=== PATIENT | female | born 1935 | race Caucasian/White ===

== ENCOUNTER → 2017-01-24 | Outpatient (CLI) | payer OTHER ==
[~2017-01-24] MED LIST: ARM1 PO; ATOR10TA88 PO; CLTP PO; HYDR0.5T PO; MULT-506 PO; PANT40TA PO
--- NOTE | 2017-01-24 13:52 | DIAGNOSTIC IMAGING REPORT ---
SINGLE VIEW PELVIS; 2 VIEWS RIGHT HIP; 2 VIEWS LEFT HIP CLINICAL HISTORY: Fall with hip pain. FINDINGS: An AP view of the pelvis with AP and frog-leg views of the right hip as well as AP and frog-leg views of the left hip are obtained. No prior studies are available for comparison at the time of dictation. The skeletal structures are osteopenic. There are right superior and inferior pubic ring fractures. The inferior pubic ring fracture is minimally distracted. The remainder of the bony pelvis appears intact, as do the proximal femora. Enthesophytes arise in the greater trochanter of the left proximal femur. Mild to moderate arthritic change is present in both hips, right side greater than left. Mild sclerosis is noted in the pubic symphysis. The overlying soft tissues are within normal limits. A nonobstructed bowel gas pattern is noted in the pelvis. Small pelvic phleboliths are identified. IMPRESSION: 1. Right pubic ring fractures as above. 2. No additional fracture is seen in the hips or bony pelvis. 3. Osteopenia and degenerative change as above. Electronically signed by: Jesse Vergara M.D. 01/24/2017 1:50 PM Dictated Date/Time: 01/24/2017 1:46 PM
== END | disposition home or self-care (01) ==
LOC: C.RADBC 11:36
PROVIDERS: ATTEND Internal Medicine
DX: S32.810A Multiple fractures of pelvis with stable disruption of pelvic ring, initial encounter for closed fracture (principal); X58.XXXA Exposure to other specified factors, initial encounter

== ENCOUNTER → 2018-01-07 | Outpatient (CLI) | payer OTHER ==
[~2018-01-07] MED LIST changes: +ATOR10TA82 PO; -ATOR10TA88 PO; +OPTIRAY 320 IV PRN
--- NOTE | 2018-01-07 15:09 | DIAGNOSTIC IMAGING REPORT ---
LUMBAR SPINE WITH CLINICAL HISTORY: M54.16 Lumbar radiculopathyscheduled at [facility] - @ 2:20pm, n pain TECHNIQUE: Transaxial acquisition. Multiple axial reformatted images COMPARISON STUDY: None FINDINGS: Mild compression deformities L4 and L5. Estimated loss of vertebral body height is 20%. 50% compression deformities of T12 and L1. Slight retropulsion of the posterior margins of the vertebral bodies estimated no more than 4 mm. T12-L1 mild posterior displacement of the posterior margin of T12 x 4 mm. Mild impact anterior thecal sac. No significant compromise of the neural foramina or spinal canal. L1-L2: Mild posterior displacement of the inferior endplate of L1 x 4 mm. Mild there is a neuroforamina bilaterally. No significant impact upon the spinal canal. L2-L3 no disc herniation or spinal stenosis. L3-L4 moderate degenerative change posterior elements. No significant compromise of the spinal canal or neural foramina. L4-L5: Mild broad-based disc bulge. Minimal impact anterior thecal sac. Neuroforamina are patent bilaterally. L5-S1: Mild broad-based disc bulge. Minimal impact anterior thecal sac. Degenerative change posterior elements. No foramina are patent bilaterally. IMPRESSION: 1. 50% compression deformities of T12 and L1. 2. Slight retropulsion of posterior margins of the vertebral bodies at both levels of no more than 4 mm. 3. 20% compression deformities of L4 and L5 4. Considerable degenerative change of the posterior elements. 5. No major compromise of the spinal canal or neural foramina. The above report was generated using voice recognition software. It may contain grammatical, syntax or spelling errors. Electronically signed by: Pee Carbajal M.D. 01/07/2018 3:08 PM Dictated Date/Time: 01/07/2018 3:02 PM
== END | disposition home or self-care (01) ==
LOC: C.CTS 13:31
PROVIDERS: ATTEND Internal Medicine Geriatric Medicine
DX: M54.16 Radiculopathy, lumbar region (principal)

== ENCOUNTER → 2018-02-02 | Outpatient (CLI) | payer OTHER ==
[~2018-02-02] MED LIST changes: -ARM1 PO; -OPTIRAY 320 IV PRN; +TRAM-10 PO
[2018-02-02 13:15] LABS: BASO % 0.5 %; BASO ABS # 0.03 K/uL (0-0.2); EOS % 2.3 %; EOS ABS # 0.15 K/uL (0-0.5); HEMATOCRIT 37.8 % (37-47); HEMOGLOBIN 12.3 g/dL (12.0-16.0); IG# 0.02 K/uL (0.00-0.02); LYMPH % 19.7 %; LYMPH ABS # 1.28 K/uL (1.2-3.4); MEAN CELL VOLUME 91.5 fL (80-100); MEAN CORPUSCULAR HEMOGLOBIN 29.8 pg (25-34); MEAN CORPUSCULAR HGB CONC 32.5 g/dl (32-36); MEAN PLATELET VOLUME 10.5 fL (7.4-10.4); MONO % 14.5 %; MONO ABS # 0.94 K/uL (0.11-0.59); NEUT % 62.7 %; NEUT ABS # 4.07 K/uL (1.4-6.5); PLATELET COUNT 245 K/uL (130-400); RED CELL DISTRIBUTION WIDTH CV 14.8 % (11.5-14.5); RED CELL DISTRIBUTION WIDTH SD 49.8 fL (36.4-46.3); WHITE BLOOD COUNT 6.49 K/uL (4.8-10.8)
== END | disposition home or self-care (01) ==
LOC: C.LAB1850 12:13
PROVIDERS: ATTEND Anesthesiology
DX: Z01.812 Encounter for preprocedural laboratory examination (principal); M54.16 Radiculopathy, lumbar region; M06.9 Rheumatoid arthritis, unspecified

== ENCOUNTER 2023-10-04 20:18 | Inpatient (IN) ==
[2023-10-04] MEDS ORDERED: ACETAMINOPHEN 500 MG TAB PO STA (20:39)
--- NOTE | 2023-10-04 23:10 | Emergency Department Note ---
History of Present Illness General Chief complaint: Hip Pain Stated complaint: FALL RT HIP PAIN Time Seen by Provider: 10/04/23 22:55 History of Present Illness 88-year-old female who presents to the emergency department accompanied by son and [id number] for evaluation status post fall with right hip pain. Patient states she got up from the table to get a drink and lost her balance causing her to fall. She reports landing on her right side/buttocks. She called for help when her son came and picked her up off the ground. Incident occurred around 3 PM. She denies hitting her head or loss of consciousness. She is unable to ambulate secondary to the pain and states that she cannot lift her right leg up. She denies numbness/tingling in the leg. She reports a history of a pelvic fracture about 10 years ago and states it feels similar. She denies feeling dizzy/lightheaded prior to her fall. Her fall was unwitnessed. She is not on any blood thinners. She denies headaches, visual changes, chest pain, shortness of breath, abdominal pain. No recent illnesses, fever/chills, nausea/vomiting, cold-like symptoms, urinary symptoms. Family states that patient is otherwise at her baseline. Home Medications Medication Instructions Recorded Confirmed Type calcium carbonate 600 mg-vitamin 1 tab PO BID 08/03/18 07/22/23 History D3 20 mcg (800 unit) chewable tablet (Caltrate 600 plus D) hydroxychloroquine 200 mg tablet 200 mg PO HS 08/03/18 07/22/23 History (Plaquenil) multivitamin 1 tab PO QAM 08/03/18 07/22/23 History duloxetine 20 mg capsule,delayed 20 mg PO QAM #90 caps 04/07/23 07/22/23 Rx release Allergies Allergy/AdvReac Type Severity Reaction Status Date / Time No Known Allergies Allergy Verified 07/22/23 13:38 Past Med/Surg History Medical History Thoracic kyphosis Anemia PVD (peripheral vascular disease) Carotid artery bruit Spinal stenosis of lumbar region Anxiety Cardiac murmur since childhood History of upper gastrointestinal bleeding 2013 due to Peptic Ulcer Severe anemia Rheumatoid arthritis Osteoporosis Tuberculosis 1963 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 09/10/21. 2mg versed. 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 History of back surgery lumbar H/O mastectomy Left Family History Other Heart disease Liver disease Denies family history of Ovarian cancer Prostate cancer Myocardial infarction Breast cancer Colorectal cancer Social History Smoking Status: Never smoker Second Hand Exposure: No; Do You Dip or Chew Tobacco: No; Hx Alcohol Use: No Hx Substance Use: No Preferred Language: Hebrew Communication Ability: Effective Visual Impairment: No Limitations Hearing Ability: Normal Health Support Specialist Required: No Beliefs That Will Affect Care: None marital status: / marital status details: 05/2019 Current Living Situation: Family Current Living Situation Comment: and son current occupational status: retired 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 Feels Safe at Home: Yes Childhood Exposure to Second-Hand Smoke: No Diet: regular caffeine: Yes during the past year weight has: remained stable Dental Care, Regularly: No Physical Activity Frequency: Does not Exercise Seatbelt Use: always Sunscreen Use: Yes Assistive Devices: Denture - Upper and Denture - Lower Physical Exam Vital Signs Vital Signs - 24 hr 10/04/23 20:35 10/05/23 00:18 Temperature 37 C 36.7 C Temperature Source Temporal Artery Scan Oral Pulse Rate 83 Pulse Rate [Finger] 65 Pulse Rhythm [Finger] Regular Pulse Strength [Finger] Normal Respiratory Rate 20 17 Respiratory Effort / Characteristics Non-Labored Spontaneous Non-Labored Spontaneous Respiratory Depth Normal Normal Respiratory Pattern Regular Blood Pressure 155/80 H Blood Pressure [Right Arm] 157/96 H Blood Pressure Mean 105 Blood Pressure Mean [Right Arm] 116 Blood Pressure Position [Right Arm] Semi-fowlers Pulse Oximetry 97 99 Oxygen Delivery Method Room Air Room Air Sepsis Recent Fever Within 48 Hours No Sepsis New/Unexplained Change in Mental Status N/A Sepsis Action Taken by Nursing No Action Required Constitutional: alert and oriented x3. no acute distress. Nontoxic HEENT: normocephalic, atraumatic. No facial trauma. No scalp tenderness or hematoma normal conjunctiva.PERRLA. EOM's grossly intact. TMs pearly moreira without effusion. Pharynx pink without exudate. Tonsils nonenlarged. Mucus membranes moist Neck: neck is supple, nontender. Midline C-spine nontender Respiratory: lungs are clear to auscultation without wheezes, rhonchi, or rales bilaterally. equal chest rise. normal respiratory effort, no accessory muscle use. Cardiovascular: normal heart sounds without murmur. regular rate and rhythm. GI: abdomen is soft, nontender. No palpable masses. No rebound tenderness or guarding. MSK: Right gluteal tenderness and tenderness over the right lateral hip. No obvious bony deformity or step-off. No extremity shortening or rotation. Pain elicited with hip flexion and external rotation. Remaining extremities unremarkable. No midline thoracic or lumbar spinal tenderness Peripheral vascular: Lower extremities warm and well perfused with palpable pedal pulses. Brisk capillary refill of all digits. Sensation grossly intact Neuro: without focal neuro deficits. GCS 15. Answers questions appropriately, follows commands. CNII-XII intact. Speech clear, tongue midline, without facial droop. Strength equal throughout all for extremities. Psych:appropriate mood and affect. Course Administered Medications Discontinued Medications Acetaminophen (Acetaminophen 500 Mg Tab) 500 mg PO NOW STA Stop: 10/04/23 20:40 Last Admin: 10/04/23 21:43 Dose: 500 mg Documented By: MERLY Medical Decision Making Differential Diagnosis Fracture, subluxation, dislocation, contusion, ligamentous injury, neurovascular, compartment syndrome, rhabdomyolysis, as well as other pathologies. Laboratory Data Attestation: I reviewed the patient's lab results. 10/05/23 00:30 10/04/23 23:23 Lab Results 10/04/23 10/04/23 10/05/23 Range/Units 23:23 23:27 00:30 WBC Cancelled 8.28 RBC Cancelled 4.00 L Hgb Cancelled 11.4 L POC Hgb 12.6 (12.0-16.0) g/dl Hct Cancelled 35.7 L POC Hct 37 (37-47) % MCV Cancelled 89.3 MCH Cancelled 28.5 MCHC Cancelled 31.9 L RDW Std Deviation Cancelled 46.6 H RDW Coeff of Mey Cancelled 14.3 Plt Count Cancelled 184 MPV Cancelled 11.1 Immature Gran % (Auto) Cancelled 0.6 Neut % (Auto) Cancelled 80.6 Lymph % (Auto) Cancelled 7.9 Reynolds % (Auto) Cancelled 10.3 Eos % (Auto) Cancelled 0.2 Baso % (Auto) Cancelled 0.4 Neut # (Auto) Cancelled 6.68 H Lymph # (Auto) Cancelled 0.65 L Reynolds # (Auto) Cancelled 0.85 H Eos # (Auto) Cancelled 0.02 Baso # (Auto) Cancelled 0.03 Immature Gran # (Auto) Cancelled 0.05 Absolute Nucleated RBC Cancelled Nucleated RBC % (auto) Cancelled Neutrophils % (Manual) Cancelled Band Neutrophils % Cancelled Lymphocytes % (Manual) Cancelled Prolymphocyte % Cancelled Reactive Lymphs % (Man) Cancelled Monocytes % (Manual) Cancelled Eosinophils % (Manual) Cancelled Basophils % (Manual) Cancelled Metamyelocytes % (Man) Cancelled Myelocytes % (Man) Cancelled Promyelocytes % (Man) Cancelled Blast Cells % (Manual) Cancelled Plasma Cell % (Manual) Cancelled Other Cells % Cancelled Nucleated RBC % Cancelled Neutrophils # (Manual) Cancelled Band Neutrophils # Cancelled Total Absolute Neuts Cancelled Lymphocytes # (Manual) Cancelled Prolymphocyte # Cancelled Reactive Lymphs # Cancelled Total Abs Lymphocytes Cancelled Monocytes # (Manual) Cancelled Eosinophils # (Manual) Cancelled Basophils # (Manual) Cancelled Metamyelocytes # (Man) Cancelled Myelocytes # (Manual) Cancelled Promyelocytes # (Man) Cancelled Blast Cells # (Man) Cancelled Plasma Cell # (Manual) Cancelled Other Cells # Cancelled Nucleated RBCs # (Man) Cancelled Hypersegmented Neuts Cancelled Hyposegmented Neuts Cancelled Hypogranular Neuts Cancelled Large Granular Lymphs Cancelled # Lrg Granular Lymphs Cancelled Hairy Cells Cancelled Smudge Cells Cancelled Toxic Granulation Cancelled Toxic Vacuolation Cancelled Dohle Bodies Cancelled Kamini Rods Cancelled Platelet Estimate Cancelled Hypogranular Platelets Cancelled Giant Platelets Cancelled Platelet Satelliting Cancelled RBC Morphology Cancelled Polychromasia Cancelled Hypochromasia Cancelled Poikilocytosis Cancelled Basophilic Stippling Cancelled Anisocytosis Cancelled Microcytosis Cancelled Macrocytosis Cancelled Spherocytes Cancelled Pappenheimer Bodies Cancelled Sickle Cells Cancelled Target Cells Cancelled Tear Drop Cells Cancelled Ovalocytes Cancelled Stomatocytes Cancelled Burger-[place] Bodies Cancelled Echinocytes Cancelled Acanthocytes (Spur) Cancelled Rouleaux Cancelled RBC Agglutinates Cancelled Schistocytes Cancelled Sezary Cell Cancelled POC Sodium 138 (135-144) mmol/L Sodium 137 (136-145) mmol/L POC Potassium 4.4 (3.3-5.0) mmol/L Potassium 4.1 (3.5-5.1) mmol/L POC Chloride 103 (101-112) mmol/L Chloride 103 (98-107) mmol/L Carbon Dioxide 26 (21-32) mmol/L POC Total CO2 29 (24-31) mmol/L Anion Gap 8 (3-11) POC Anion Gap 11.0 L (16-25) mmol/L POC BUN 31 H (7-18) mg/dl BUN 24 H (6-23) mg/dl Creatinine 1.04 (0.6-1.2) mg/dl POC Creatinine 1.1 (0.6-1.3) mg/dl Est Cr Clr Drug Dosing Not Reportable Est GFR ( Amer) 55.6 ml/min Est GFR (Non-Af Amer) 47.9 ml/min BUN/Creatinine Ratio 23.1 H (10-20) Glucose 110 H (70-99(Fasting)) mg/dl POC Glucose (other) 113 H (70-99) mg/dl Calcium 9.9 (8.6-10.3) mg/dl POC Ioniz Calcium Rebeka 1.15 (1.12-1.32) mmol/l Total Bilirubin 0.7 (0.2-1.0) mg/dl AST 35 (13-39) U/L ALT 25 (7-52) U/L Alkaline Phosphatase 73 (34-104) U/L Troponin I High Sens 19.1 H (0-14) pg/ml Total Protein 7.6 (6.0-8.3) gm/dl Albumin 4.5 (3.4-5.0) gm/dl Globulin 3.1 (2.5-4.0) gm/dl Albumin/Globulin Ratio 1.5 (0.9-2) Blood Parasites ID Cancelled Imaging Data Radiologist's Impression: Cervical Spine CT 10/04/23 23:04 Exam(s): CT C SPINE EXAM: CT Cervical Spine Without Intravenous Contrast CLINICAL HISTORY: Reason for exam: fall. TECHNIQUE: Axial computed tomography images of the cervical spine without intravenous contrast. CTDI is 14.01 mGy and DLP is 390.4 mGy-cm. Automated exposure control was utilized for the study. A dose lowering technique was utilized adhering to the principles of ALARA. COMPARISON: No relevant prior studies available. FINDINGS: The vertebral body heights are maintained. The craniocervical junction is intact. The atlanto-dens interval is maintained. The dens is intact. There is no spondylolisthesis. Multilevel cervical spondylosis and degenerative disc disease. Straightening of the cervical lordosis. The unenhanced neck soft tissues are grossly unremarkable. LEFT apical pleural-parenchymal scarring/thickening with mild complications. IMPRESSION: No acute fracture or subluxation of the cervical spine. Electronically signed by: Young Munoz MD 10/05/23 00:[address] 10/04/23 23:04 Exam(s): CT HEAD Without Contrast EXAM: CT Head Without Intravenous Contrast CLINICAL HISTORY: Reason for exam: fall. TECHNIQUE: Axial computed tomography images of the head/brain without intravenous contrast. CTDI is 26.96 mGy and DLP is 536.21 mGy-cm. Automated exposure control was utilized for the study. A dose lowering technique was utilized adhering to the principles of ALARA. COMPARISON: No relevant prior studies available. FINDINGS: No acute intracranial hemorrhage. No midline shift or mass effect. The territorial moreira-white matter differentiation is maintained throughout. Age-related cerebral volume loss. Periventricular and subcortical white matter hypoattenuation, consistent with chronic microangiopathy. The visualized orbits appear grossly unremarkable. The calvarium is intact. The visualized paranasal sinuses and mastoid air cells are grossly clear. IMPRESSION: No acute intracranial hemorrhage, midline shift, or mass effect. Electronically signed by: Young Munoz MD 10/05/23 00:[address] 10/04/23 23:04 Exam(s): CT RIGHT HIP Without Contrast EXAM: CT Right Lower Extremity Without Intravenous Contrast, Hip CLINICAL HISTORY: Reason for exam: fall R hip pain. TECHNIQUE: Axial computed tomography images of the right hip without intravenous contrast. CTDI is 14.01 mGy and DLP is 390.4 mGy-cm. Automated exposure control was utilized for the study. A dose lowering technique was utilized adhering to the principles of ALARA. COMPARISON: No relevant prior studies available. FINDINGS: Acute fracture of the RIGHT superior pubic ramus, parasymphyseal region. [id number] appearing fracture of the RIGHT inferior pubic ramus. Nondisplaced fracture of the LEFT superior pubic ramus. No femoral neck or intertrochanteric hip fracture. Osseous demineralization. Refer to the concomitant pelvic CT scan. IMPRESSION: Acute fracture of the RIGHT superior pubic ramus, parasymphyseal region. [id number]-[id number] appearing fracture of the RIGHT inferior pubic ramus. Nondisplaced fracture of the LEFT superior pubic ramus. Electronically signed by: Young Munoz MD 10/05/23 01:[address] 10/04/23 23:04 Exam(s): CT PELVIS Without Contrast EXAM: CT Pelvis Without Intravenous Contrast CLINICAL HISTORY: Reason for exam: fall, R buttock pain. TECHNIQUE: Axial computed tomography images of the pelvis without intravenous contrast. CTDI is 26.96 mGy and DLP is 536.21 mGy-cm. Automated exposure control was utilized for the study. A dose lowering technique was utilized adhering to the principles of ALARA. COMPARISON: No relevant prior studies available. FINDINGS: No femoral neck or intertrochanteric hip fracture. Acute fracture of the RIGHT superior pubic ramus, parasymphyseal region. Gxqod-qh-iynbpew appearing fracture of the RIGHT inferior pubic ramus. Nondisplaced fracture of the LEFT superior pubic ramus. No fracture of the sacral ala. Degenerative changes of the bilateral hip joints, pubic symphysis, and sacroiliac joints. Severe osseous demineralization. Lumbar spondylosis and disc space narrowing. Intrapelvic contents are within normal limits for the patient's age. Intact sacrum. IMPRESSION: Acute fracture of the RIGHT superior pubic ramus, parasymphyseal region. Yzyyr-lh-yboxnic appearing fracture of the RIGHT inferior pubic ramus. Nondisplaced fracture of the LEFT superior pubic ramus. Electronically signed by: Young Munoz MD 10/05/23 01:21 AM MDM Narrative 88-year-old female presents to the emergency department company by son and [id number] for evaluation of her right hip/pelvic pain status post mechanical fall. Review of pertinent visits and past medical history performed. Vital signs in ED stable, afebrile. Patient was seen and evaluated as above. X-ray of the right hip/pelvis were obtained. These were personally reviewed and per my interpretation demonstrate right superior pubic ramus fracture. Head/neck CT was also obtained given mechanism of injury and unwitnessed fall and were negative for acute pathology. No evidence for intracranial abnormality. No cervical neck fracture or subluxation. Given x-ray findings, CT of the pelvis and hip were obtained for further evaluation. This demonstrated acute fracture of the right superior pubic ramus and then parasymphyseal region as well as a nondisplaced fracture of the left superior pubic ramus. There is an acute on chronic appearing fracture in the right inferior pubic ramus. On exam, patient is well-appearing in no acute distress. She is neurologically intact without focal deficits. GCS 15. She is mildly tender in the right gluteal region as well as lateral hip. Right lower extremity range of motion is limited secondary to pain. Neurovascularly intact. The remaining physical exam was otherwise unremarkable. She declined need for pain medication while in the ED. Patient was reassessed on multiple occasions throughout ED stay and remained stable with no new concerns. They were updated on all exam findings and test results. She has sustained an acute pelvic fracture from her fall. I did recommend admission to the hospital for further management and orthopedic evaluation for her injury. They were agreeable to this. Basic labs were obtained for admission and nonactionable. Case was discussed with hospitalist, Dr. Rosario, who graciously accepted patient to his service for further treatment. Patient was admitted in good condition. Case was discussed with ED attending, Dr. Hughes, who agreed with work-up and treatment plan Impression & Plan Closed pelvic fracture, Ambulatory dysfunction, Fall from slip, trip, or stumble Discharge Plan Visit Data Chief Complaint: Hip Pain Stated Complaint: FALL RT HIP PAIN ED Provider: Quan Hughes ED Midlevel Provider: Stephanie Guzman Discharge Problem: Closed pelvic fracture, Ambulatory dysfunction, Fall from slip, trip, or stumble Patient Disposition: Admitted As Inpatient Forms Stand Alone Forms: My [facility] Prescriptions Prescriptions: No Action multivitamin tablet 1 tab PO QAM hydroxychloroquine [Plaquenil] 200 mg tablet 200 mg PO HS calcium carbonate-vitamin D3 [Caltrate 600 plus D] 600 mg (1,500 mg)-800 unit tablet,chewable 1 tab PO BID duloxetine 20 mg capsule,delayed release(DR/EC) 20 mg PO QAM Qty: 90 3RF Referrals Referrals: Margaret Faye CRNP [Primary Care Provider] -
[2023-10-04 23:40] LABS: iSTAT Creatinine 1.1 mg/dl (0.6-1.3); iSTAT Hemoglobin 12.6 g/dl (12.0-16.0); iSTAT Ionized Calcium 1.15 mmol/l (1.12-1.32); iSTAT Potassium 4.4 mmol/L (3.3-5.0)
[2023-10-05 00:07] LABS: Alanine Aminotransferase 25 U/L (7-52); Albumin Globulin Ratio 1.5 (0.9-2); Albumin Level 4.5 gm/dl (3.4-5.0); Alkaline Phosphatase 73 U/L (34-104); Anion Gap 8 (3-11); Aspartate Aminotransferase 35 U/L (13-39); BUN Creatinine Ratio 23.1 (10-20); Bilirubin,Total 0.7 mg/dl (0.2-1.0); Blood Urea Nitrogen 24 mg/dl (6-23); Calcium 9.9 mg/dl (8.6-10.3); Carbon Dioxide 26 mmol/L (21-32); Chloride 103 mmol/L (98-107); Est GFR (African American) 55.6 ml/min; Est GFR (Non-African American) 47.9 ml/min; Globulin 3.1 gm/dl (2.5-4.0); Glucose 110 mg/dl (70-99(Fasting)); Potassium 4.1 mmol/L (3.5-5.1); Sodium 137 mmol/L (136-145); Total Protein 7.6 gm/dl (6.0-8.3)
[2023-10-05 00:16] LABS: Troponin I High Sensitivity 19.1 pg/ml (0-14)
--- NOTE | 2023-10-05 00:35 | CT Scan Report ---
Exam(s): CT HEAD Without Contrast EXAM: CT Head Without Intravenous Contrast CLINICAL HISTORY: Reason for exam: fall. TECHNIQUE: Axial computed tomography images of the head/brain without intravenous contrast. CTDI is 26.96 mGy and DLP is 536.21 mGy-cm. Automated exposure control was utilized for the study. A dose lowering technique was utilized adhering to the principles of ALARA. COMPARISON: No relevant prior studies available. FINDINGS: No acute intracranial hemorrhage. No midline shift or mass effect. The territorial moreira-white matter differentiation is maintained throughout. Age-related cerebral volume loss. Periventricular and subcortical white matter hypoattenuation, consistent with chronic microangiopathy. The visualized orbits appear grossly unremarkable. The calvarium is intact. The visualized paranasal sinuses and mastoid air cells are grossly clear. IMPRESSION: No acute intracranial hemorrhage, midline shift, or mass effect. Electronically signed by: Young Munoz MD 10/05/23 00:34 AM
--- NOTE | 2023-10-05 00:36 | CT Scan Report ---
Exam(s): CT C SPINE EXAM: CT Cervical Spine Without Intravenous Contrast CLINICAL HISTORY: Reason for exam: fall. TECHNIQUE: Axial computed tomography images of the cervical spine without intravenous contrast. CTDI is 14.01 mGy and DLP is 390.4 mGy-cm. Automated exposure control was utilized for the study. A dose lowering technique was utilized adhering to the principles of ALARA. COMPARISON: No relevant prior studies available. FINDINGS: The vertebral body heights are maintained. The craniocervical junction is intact. The atlanto-dens interval is maintained. The dens is intact. There is no spondylolisthesis. Multilevel cervical spondylosis and degenerative disc disease. Straightening of the cervical lordosis. The unenhanced neck soft tissues are grossly unremarkable. LEFT apical pleural-parenchymal scarring/thickening with mild complications. IMPRESSION: No acute fracture or subluxation of the cervical spine. Electronically signed by: Young Munoz MD 10/05/23 00:35 AM
[2023-10-05 00:45] LABS: Basophils # (auto) 0.03 K/uL (0.00-0.20); Basophils % (auto) 0.4 %; Eosinophils # (auto) 0.02 K/uL (0.00-0.50); Eosinophils % (auto) 0.2 %; Hematocrit (blood only) 35.7 % (37.0-47.0); Hemoglobin 11.4 g/dl (12.0-16.0); Immature Granulocytes # (auto) 0.05 K/uL (0.01-0.20); Immature Granulocytes % (auto) 0.6 %; Lymphocytes # (auto) 0.65 K/uL (1.20-3.40); Lymphocytes % (auto) 7.9 %; Mean Corpuscular Hemoglobin 28.5 pg (25.0-34.0); Mean Corpuscular Hgb Conc 31.9 g/dL (32.0-36.0); Mean Corpuscular Volume 89.3 fL (80.0-100.0); Mean Platelet Volume 11.1 fL (9.4-12.4); Monocytes # (auto) 0.85 K/uL (0.11-0.59); Monocytes % (auto) 10.3 %; Neutrophils # (auto) 6.68 K/uL (1.40-6.50); Neutrophils % (auto) 80.6 %; Platelet Count 184 K/uL (130-400); RDW Coefficient of Variation 14.3 % (11.5-14.5); RDW Standard Deviation 46.6 fL (36.4-46.3); White Blood Count 8.28 K/ul (4.8-10.8)
--- NOTE | 2023-10-05 01:22 | CT Scan Report ---
Exam(s): CT PELVIS Without Contrast EXAM: CT Pelvis Without Intravenous Contrast CLINICAL HISTORY: Reason for exam: fall, R buttock pain. TECHNIQUE: Axial computed tomography images of the pelvis without intravenous contrast. CTDI is 26.96 mGy and DLP is 536.21 mGy-cm. Automated exposure control was utilized for the study. A dose lowering technique was utilized adhering to the principles of ALARA. COMPARISON: No relevant prior studies available. FINDINGS: No femoral neck or intertrochanteric hip fracture. Acute fracture of the RIGHT superior pubic ramus, parasymphyseal region. Zolzy-gu-pqxrrns appearing fracture of the RIGHT inferior pubic ramus. Nondisplaced fracture of the LEFT superior pubic ramus. No fracture of the sacral ala. Degenerative changes of the bilateral hip joints, pubic symphysis, and sacroiliac joints. Severe osseous demineralization. Lumbar spondylosis and disc space narrowing. Intrapelvic contents are within normal limits for the patient's age. Intact sacrum. IMPRESSION: Acute fracture of the RIGHT superior pubic ramus, parasymphyseal region. Qfwty-yb-ihaxefc appearing fracture of the RIGHT inferior pubic ramus. Nondisplaced fracture of the LEFT superior pubic ramus. Electronically signed by: Young Munoz MD 10/05/23 01:21 AM
--- NOTE | 2023-10-05 01:30 | CT Scan Report ---
Exam(s): CT RIGHT HIP Without Contrast EXAM: CT Right Lower Extremity Without Intravenous Contrast, Hip CLINICAL HISTORY: Reason for exam: fall R hip pain. TECHNIQUE: Axial computed tomography images of the right hip without intravenous contrast. CTDI is 14.01 mGy and DLP is 390.4 mGy-cm. Automated exposure control was utilized for the study. A dose lowering technique was utilized adhering to the principles of ALARA. COMPARISON: No relevant prior studies available. FINDINGS: Acute fracture of the RIGHT superior pubic ramus, parasymphyseal region. Crvut-tu-dsaxuxw appearing fracture of the RIGHT inferior pubic ramus. Nondisplaced fracture of the LEFT superior pubic ramus. No femoral neck or intertrochanteric hip fracture. Osseous demineralization. Refer to the concomitant pelvic CT scan. IMPRESSION: Acute fracture of the RIGHT superior pubic ramus, parasymphyseal region. Istfo-rb-ndwqkbr appearing fracture of the RIGHT inferior pubic ramus. Nondisplaced fracture of the LEFT superior pubic ramus. Electronically signed by: Young Munoz MD 10/05/23 01:29 AM
--- NOTE | 2023-10-05 02:37 | History & Physical Report ---
Date of Service October 05, 2023 Assessment & Plan (1) Closed pelvic fracture: Plan: 88 F presenting to ED for right hip pain following a mechanical fall. Now stable, admitted to hospital for acute bilateral fracture of pubic bone. Closed pelvic fracture, bilateral -Hip CT: "Fracture of right superior pubic ramus, parasymphyseal region. Acute on chronic appearing fracture of the right inferior pubic ramus. Nondisplaced fracture of the left superior pubic ramus. No femoral neck or intertrochanteric hip fracture." -Fall appears to be mechanical, without LOC, dizziness, headache, or other visual abnormalities. -Pain reasonably well-controlled on single dose of p.o. Tylenol 500 mg received in the ED. * Admit to MedSurg. N.p.o. * Scheduled pain control: IV Tylenol 1000 mg every 8 hours * Maintenance IVF: Lactated Ringer @80 mL/h * Vitamin D3 5000 units daily * Fall precautions * Tavarez catheter in place * Orthopedic surgery consult placed Rheumatoid arthritis -Chronic. Takes hydroxychloroquine 200 mg nightly. * Continue Osteopenia -Chronic. Takes daily multivitamin (Alive Premium women's 50+), Caltrate 600 plus D, 1 tab twice daily. * Continue Code: Full code Dispo: Med-Surg FEN/GI: NPO. LR @maintenance rate DVT Prophylaxis: None PT/OT: Yes Consults: Orthopedic surgery Case Management: No (2) Ambulatory dysfunction: (3) Fall from slip, trip, or stumble: History of Present Illness Primary Care Provider: DONALDO Sarabia Min is an 88-year-old woman who presented to the emergency room with her son and plthyupu-no-jld for assessment of her right hip pain, which she suffered after a fall. Patient reports she lost her balance at home at about 3 PM when standing up for a drink of water. She denies hitting her head or losing consciousness. Fall was unwitnessed but her son came to pick her off the floor when she called for help. They decided to come to the hospital when she was unable to ambulate because of the pain in her right leg. On arrival, she denies recent illness, headaches, vision changes, shortness of breath, abdominal pain, nausea, urinary frequency. According to her family, she appears at her baseline from a mental status standpoint. She is not on blood thinners. Vitals on arrival were within stable and/or normal limits. CBC and CMP were both mostly normal. Troponin was slightly elevated at 19.1, though a 2-hour repeat level was 17. CT head was negative for any acute intracranial process. CT C-spine was negative for fracture or subluxation. However, CTs of the hip and pelvis both showed an "acute fracture of the right superior pubic ramus, parasymphyseal region" and a "nondisplaced fracture of the left superior pubic ramus." There was also an "mykxx-em-kgyrnsj appearing fracture of the right inferior pubic ramus" noted on imaging as well. She received a single oral dose of acetaminophen 500 mg. Hospitalist service was then consulted for admission. Allergies Allergy/AdvReac Type Severity Reaction Status Date / Time No Known Allergies Allergy Verified 10/05/23 01:50 Home Medications Medication Instructions Recorded Confirmed Type calcium carbonate 600 mg-vitamin 1 tab PO BID 08/03/18 10/05/23 History D3 20 mcg (800 unit) chewable tablet (Caltrate 600 plus D) hydroxychloroquine 200 mg tablet 200 mg PO HS 08/03/18 10/05/23 History (Plaquenil) akppdncs-heu-bkqvw 80 mcg-lutein 1 tab PO DAILY 10/05/23 10/05/23 History 166.7 mcg-herbal 66.7 mg chew tablet (Alive Premium Women's 50 Plus) Past Med/Surg History Medical History Thoracic kyphosis Anemia PVD (peripheral vascular disease) Carotid artery bruit Spinal stenosis of lumbar region Anxiety Cardiac murmur since childhood History of upper gastrointestinal bleeding 2013 due to Peptic Ulcer Severe anemia Rheumatoid arthritis Osteoporosis Tuberculosis 1963 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 09/10/21. 2mg versed. 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 History of back surgery lumbar H/O mastectomy Left Family History Other Heart disease Liver disease Denies family history of Ovarian cancer Prostate cancer Myocardial infarction Breast cancer Colorectal cancer Social History Smoking Status: Never smoker Second Hand Exposure: No; Do You Dip or Chew Tobacco: No; Hx Alcohol Use: No Hx Substance Use: No Preferred Language: Icelandic Communication Ability: Effective Visual Impairment: No Limitations Hearing Ability: Normal Spooler Operator Required: No Beliefs That Will Affect Care: None marital status: / marital status details: 05/2019 Current Living Situation: Family Current Living Situation Comment: and son current occupational status: retired 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 Normal conjunctiva, anicteric sclera. Oropharynx normal. Respiratory: Normal respiratory effort, CTABL. Cardiovascular: RRR. 2/6 systolic ejection murmur LUSB. No gallops or rubs heard on auscultation. No pedal edema. GI: Soft abdomen. Nontender x4 quadrants Neuro: Alert and oriented x3. Results & Data Results & Data Vital Signs (Past 12 Hours) Vital Signs Temp Pulse Pulse Resp BP BP Pulse Ox 10/05/23 01:58 79 18 167/103 H 100 10/05/23 00:18 36.7 C 65 17 157/96 H 99 10/04/23 20:35 37 C 83 20 155/80 H 97 O2 Del Method 10/05/23 01:58 Room Air 10/05/23 00:18 Room Air 10/04/23 20:35 Room Air Supervising Physician Co-Signing Physician Notes Attending addendum: I have physically seen this patient, have supervised the medical residents activities, and agree with the H&P unless as otherwise noted. Assessment and Plan: Closed pelvic fracture involving right superior and inferior pubic ramus, and left superior pubic ramus- Admit to [facility] [place] Pain control acetaminophen 1 g IV every 8 hours Fall precautions Tavarez catheter in place Consult orthopedic surgery Conservative management Consult PT/OT vitamin D and calcium supplementation as noted Consult social research assistant Rheumatoid arthritis- Continue hydroxychloroquine Resident Activity Tracking Resident Involvement: Resident Care Provided Care Provided: Adult Hospital Medicine (1) Closed pelvic fracture Encounter type: initial encounter Laterality: unspecified laterality Pelvic bone location: pubis Sublocation of pubis: superior rim Qualified Code(s): S32.519A - Fracture of superior rim of unspecified pubis, initial encounter for closed fracture (3) Fall from slip, trip, or stumble Encounter type: initial encounter Qualified Code(s): W01.0XXA - Fall on same level from slipping, tripping and stumbling without subsequent striking against object, initial encounter
--- NOTE | 2023-10-05 05:27 | Billing Data ---
Date of Service October 05, 2023 Coding Level of Care Code 33047 INT INP/OBS CARE
[2023-10-05] MEDS: LACTATED RINGER'S 1,000 ML IV SCH ×2 (05:35→20:17)
[2023-10-05] MEDS ORDERED: ACETAMINOPHEN 1,000 MG/100 ML VIAL IV SCH (06:00)
[2023-10-05 07:10] LABS: Anion Gap 5 (3-11); BUN Creatinine Ratio 25.6 (10-20); Blood Urea Nitrogen 22 mg/dl (6-23); Carbon Dioxide 27 mmol/L (21-32); Chloride 107 mmol/L (98-107); Est GFR (African American) 69.9 ml/min; Est GFR (Non-African American) 60.3 ml/min; Glucose 89 mg/dl (70-99(Fasting)); Sodium 139 mmol/L (136-145)
--- NOTE | 2023-10-05 08:30 | Orthopedic Consultation ---
Date of Service October 05, 2023 Assessment & Plan (1) Closed pelvic fracture: At this point, patient is quite comfortable in bed with current pain analgesic regimen. Her fractures appear to be nonoperative in state at this point but must be watched carefully with close follow-up on an outpatient basis. She may be guarded weightbearing as tolerated with a wheeled walker. She will work with physical therapy and Occupational Therapy later on today to help with ambulatory assistance. Current analgesics per primary. Medical management per primary. She will more likely require placement for rehabilitation. We will follow-up with her as an outpatient. Please [place] text or reach out to [facility] orthopedics if patient's situation changes. History of Present Illness Reason for Consultation: . Pelvis FX Requesting Physician: . Attending Physician: Burke Hicks MD . Patient is an 88-year-old female who presented to the [facility] emergency department early this morning due to a fall. She noted that at 3 PM yesterday, she was going to grab a drink of water whenever she lost her balance and fell. She had immediate onset of pelvis pain. She denies hitting her head or losing any consciousness. She was able to call for her son by telephone for him to come help pick her up. There is a delay in presentation to the hospital due to family want to wait it out but when she was unable to ambulate with the right leg, they decided to bring her to the emergency department. A CT of the hip and pelvis was completed which showed acute fracture of the right superior pubic ramus, parasymphyseal region and a nondisplaced fracture of the left superior pubic ramus. There is also acute on chronic appearing fracture of the right inferior pubic ramus noted as well on imaging. She notes that at this moment, her pain is well controlled with her current pain analgesic regimen. She has had to be out of bed since coming to the emergency department. She denies any low back pain, distal extremity pain, numbness/tingling, or paresthesias. Allergies Allergy/AdvReac Type Severity Reaction Status Date / Time No Known Allergies Allergy Verified 10/05/23 01:50 Home Medications Medication Instructions Recorded Confirmed Type calcium carbonate 600 mg-vitamin 1 tab PO BID 08/03/18 10/05/23 History D3 20 mcg (800 unit) chewable tablet (Caltrate 600 plus D) hydroxychloroquine 200 mg tablet 200 mg PO HS 08/03/18 10/05/23 History (Plaquenil) jqaskqlj-jie-kaabe 80 mcg-lutein 1 tab PO DAILY 10/05/23 10/05/23 History 166.7 mcg-herbal 66.7 mg chew tablet (Alive Premium Women's 50 Plus) Past Med/Surg History Medical History Thoracic kyphosis Anemia PVD (peripheral vascular disease) Carotid artery bruit Spinal stenosis of lumbar region Anxiety Cardiac murmur since childhood History of upper gastrointestinal bleeding 2013 due to Peptic Ulcer Severe anemia Rheumatoid arthritis Osteoporosis Tuberculosis 1963 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 09/10/21. 2mg versed. 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 History of back surgery lumbar H/O mastectomy Left Family History Other Heart disease Liver disease Denies family history of Ovarian cancer Prostate cancer Myocardial infarction Breast cancer Colorectal cancer Social History Smoking Status: Never smoker Second Hand Exposure: No; Do You Dip or Chew Tobacco: No; Hx Alcohol Use: No Hx Substance Use: No Preferred Language: Maltese Communication Ability: Effective Visual Impairment: No Limitations Hearing Ability: Normal Business Systems Administrator Required: No Beliefs That Will Affect Care: Episcopal Episcopal Beliefs: faith marital status: / marital status details: 05/2019 Current Living Situation: Family Current Living Situation Comment: lives with son and daughter in law current occupational status: retired 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 Physical Exam . General: Relaxed but frail-appearing elderly woman in no acute distress HEENT: PERRLA. Normal conjunctiva, anicteric sclera. Oropharynx normal. Respiratory: Normal respiratory effort, CTABL. Cardiovascular: RRR. 2/6 systolic ejection murmur LUSB. No gallops or rubs heard on auscultation. No pedal edema. GI: Soft abdomen. Nontender x4 quadrants Neuro: Alert and oriented x3. Musculoskeletal Focused exam of the right lower extremity reveals chronic venous changes with no erythema, ecchymosis, edema, or other obvious deformities. Mild discomfort with range of motion at the hip but improved from earlier per patient. Limited range secondary to weakness and discomfort at the hip. Normal range of motion and strength of the knee, ankle, all 5 toes. Plantarflexion dorsiflexion intact. +2 DP and PT pulses. Less than 2-second capillary refill. Normal sensation. Neurovascular intact. Focused exam of the left lower extremity reveals chronic venous changes with no erythema, ecchymosis, edema, or other obvious deformities. Mild discomfort with range of motion at the hip but improved from earlier per patient. Limited range secondary to weakness and discomfort at the hip but greater than the right. Normal range of motion and strength of the knee, ankle, and all 5 toes. Plantarflexion dorsiflexion intact. +2 DP and PT pulses. Less than 2-second capillary refill. Normal sensation. Neurovascular intact. Results & Data Results & Data Laboratory Results . Diagnostic Findings Hip CT 10/04/23 23:04 Exam(s): CT RIGHT HIP Without Contrast EXAM: CT Right Lower Extremity Without Intravenous Contrast, Hip CLINICAL HISTORY: Reason for exam: fall R hip pain. TECHNIQUE: Axial computed tomography images of the right hip without intravenous contrast. CTDI is 14.01 mGy and DLP is 390.4 mGy-cm. Automated exposure control was utilized for the study. A dose lowering technique was utilized adhering to the principles of ALARA. COMPARISON: No relevant prior studies available. FINDINGS: Acute fracture of the RIGHT superior pubic ramus, parasymphyseal region. Qnfxo-pq-iedpxtj appearing fracture of the RIGHT inferior pubic ramus. Nondisplaced fracture of the LEFT superior pubic ramus. No femoral neck or intertrochanteric hip fracture. Osseous demineralization. Refer to the concomitant pelvic CT scan. IMPRESSION: Acute fracture of the RIGHT superior pubic ramus, parasymphyseal region. Gynhx-ze-qlbuymu appearing fracture of the RIGHT inferior pubic ramus. Nondisplaced fracture of the LEFT superior pubic ramus. Electronically signed by: Young Munoz MD 10/05/23 01:[address] 10/04/23 23:04 Exam(s): CT PELVIS Without Contrast EXAM: CT Pelvis Without Intravenous Contrast CLINICAL HISTORY: Reason for exam: fall, R buttock pain. TECHNIQUE: Axial computed tomography images of the pelvis without intravenous contrast. CTDI is 26.96 mGy and DLP is 536.21 mGy-cm. Automated exposure control was utilized for the study. A dose lowering technique was utilized adhering to the principles of ALARA. COMPARISON: No relevant prior studies available. FINDINGS: No femoral neck or intertrochanteric hip fracture. Acute fracture of the RIGHT superior pubic ramus, parasymphyseal region. Vkoak-eu-edcadlj appearing fracture of the RIGHT inferior pubic ramus. Nondisplaced fracture of the LEFT superior pubic ramus. No fracture of the sacral ala. Degenerative changes of the bilateral hip joints, pubic symphysis, and sacroiliac joints. Severe osseous demineralization. Lumbar spondylosis and disc space narrowing. Intrapelvic contents are within normal limits for the patient's age. Intact sacrum. IMPRESSION: Acute fracture of the RIGHT superior pubic ramus, parasymphyseal region. Uktmd-wc-kyvrjrw appearing fracture of the RIGHT inferior pubic ramus. Nondisplaced fracture of the LEFT superior pubic ramus. Electronically signed by: Young Munoz MD 10/05/23 01:21 AM PG Care Time/CCT Total # of Minutes Spent Total Time Spent with Patient: Total time spent is greater than 50% in coordination of care (as documented) at patient's floor/unit and/or counseling patient: Coding Level of Care Code 73251 OFFICE CONSULT LVL 4/40M Diagnoses Closed fracture of superior ramus of pubis, unspecified laterality, initial en counter S32.519A Encounter type: initial encounter Laterality: unspecified laterality Pelvic bone location: pubis Sublocation of pubis: superior rim (1) Closed pelvic fracture Encounter type: initial encounter Laterality: unspecified laterality Pelvic bone location: pubis Sublocation of pubis: superior rim Qualified Code(s): S32.519A - Fracture of superior rim of unspecified pubis, initial encounter for closed fracture
--- NOTE | 2023-10-05 08:34 | XRay Report ---
XR hip RT 2V w pelvis CLINICAL HISTORY: fall TECHNIQUE: 2 views of the right hip and single frontal view of the pelvis were obtained. Comparison: Comparison is made to pelvis radiograph 01/24/2017 FINDINGS: Fractures are seen in the right superior and inferior pubic rami extending to the symphysis. Joint sp aces are well-preserved. No soft tissue abnormality is seen. IMPRESSION: Right pubic ring fractures are seen. ACT 112: Negative or not required by law. Electronically signed by: John Jackson M.D. 10/05/2023 8:33 AM
[2023-10-05] MEDS: CHOLECALCIFEROL 5,000 UNITS 125 MCG TAB PO SCH (08:35)
[2023-10-05] MEDS: CALCIUM 600MG + VIT D 400 IU TAB PO SCH ×2 (08:35→20:55)
[2023-10-05] MEDS: CEROVITE ADV FORMULA TAB PO SCH (08:35)
--- NOTE | 2023-10-05 08:36 | Electrocardiogram Report ---
Test Reason : Blood Pressure : / mmHG Vent. Rate : 073 BPM Atrial Rate : 073 BPM P-R Int : 148 ms QRS Dur : 100 ms QT Int : 438 ms P-R-T Axes : 005 010 032 degrees QTc Int : 482 ms Normal sinus rhythm Possible Old Lateral infarct Abnormal ECG When compared with ECG of 01-NOV-2014 09:18, No significant change was found Confirmed by Edison Olivas ([id number]) on 10/05/2023 8:35:46 AM Referred By: REFERRED SELF Confirmed By:Edison Olivas
--- NOTE | 2023-10-05 09:13 | Hospitalist Progress Note ---
Date of Service October 05, 2023 Assessment & Plan (1) Closed pelvic fracture: Plan: 88 F presenting to ED for right hip pain following a mechanical fall. Now stable, admitted to hospital for acute bilateral fracture of pubic bone. Age-related osteoporotic fracture of the pelvis -Hip CT: "Fracture of right superior pubic ramus, parasymphyseal region. Acute on chronic appearing fracture of the right inferior pubic ramus. Nondisplaced fracture of the left superior pubic ramus. No femoral neck or intertrochanteric hip fracture." -Fall appears to be mechanical, without LOC, dizziness, headache, or other vi sual abnormalities. -Pain reasonably well-controlled on single dose of p.o. Tylenol 500 mg received in the ED.. * Scheduled pain control: IV Tylenol 1000 mg every 8 hours * Maintenance IVF: Lactated Ringer @80 mL/h * Vitamin D3 5000 units daily * Fall precautions * Tavarez catheter in place * Orthopedic surgery consult placed, conservative management, pt prefers to try to go home Rheumatoid arthritis -Chronic. Takes hydroxychloroquine 200 mg nightly. * Continue Osteopenia -Chronic. Takes daily multivitamin (Alive Premium women's 50+), Caltrate 600 plus D, 1 tab twice daily. * Continue Code: Full code Dispo: Med-Surg DVT Prophylaxis: None PT/OT: Yes Consults: Orthopedic surgery (2) Ambulatory dysfunction: (3) Fall from slip, trip, or stumble: Admission and Anticipated Discharge Date Admission Date: October 05, 2023 Results & Data Results & Data Vital Signs (Past 12 Hours) Vital Signs Temp Pulse Resp BP Pulse Ox O2 Del Method 10/05/23 09:09 67 18 101/57 L 98 Room Air 10/05/23 07:34 63 16 112/65 93 Room Air 10/05/23 06:00 64 18 116/62 97 Room Air 10/05/23 03:53 66 18 125/60 98 Room Air 10/05/23 01:58 79 18 167/103 H 100 Room Air 10/05/23 00:18 98.1 F 65 17 157/96 H 99 Room Air PG Care Time/CCT Total # of Minutes Spent Total Time Spent with Patient: Total time spent is greater than 50% in coordination of care (as documented) at patient's floor/unit and/or counseling patient: Coding Level of Care Code None Diagnoses Closed fracture of superior ramus of pubis, unspecified laterality, initial encounter S32.519A Encounter type: initial encounter Laterality: unspecified laterality Pelvic bone location: pubis Sublocation of pubis: superior rim Ambulatory dysfunction R26.2 Fall on same level from slipping, tripping or stumbling, initial encounter W01.0XXA Encounter type: initial encounter (1) Closed pelvic fracture Encounter type: initial encounter Laterality: unspecified laterality Pelvic bone location: pubis Sublocation of pubis: superior rim Qualified Code(s): S32.519A - Fracture of superior rim of unspecified pubis, initial encounter for closed fracture (3) Fall from slip, trip, or stumble Encounter type: initial encounter Qualified Code(s): W01.0XXA - Fall on same level from slipping, tripping and stumbling without subsequent striking against object, initial encounter
[2023-10-05] MEDS: LIDOCAINE 5% 1 PATCH TD SCH (11:01)
[2023-10-05] MEDS: ACETAMINOPHEN 500 MG TAB PO SCH ×2 (14:51→22:11)
[2023-10-05] MEDS: HYDROXYCHLOROQUINE SULFATE 200 MG TAB PO SCH (20:55)
[2023-10-06] MEDS: traMADol HCL 50 MG TABLET PO PRN ×2 (04:24→22:10)
[2023-10-06 06:21] LABS: Hematocrit (blood only) 31.2 % (37.0-47.0); Hemoglobin 10.2 g/dl (12.0-16.0); Mean Corpuscular Hemoglobin 29.1 pg (25.0-34.0); Mean Corpuscular Hgb Conc 32.7 g/dL (32.0-36.0); Mean Corpuscular Volume 88.9 fL (80.0-100.0); Mean Platelet Volume 12.1 fL (9.4-12.4); Platelet Count 155 K/uL (130-400); RDW Coefficient of Variation 14.5 % (11.5-14.5); RDW Standard Deviation 46.9 fL (36.4-46.3); Red Blood Count 3.51 M/uL (4.20-5.40); White Blood Count 6.26 K/ul (4.8-10.8)
[2023-10-06 06:36] LABS: BUN Creatinine Ratio 22.7 (10-20); Calcium 9.3 mg/dl (8.6-10.3); Creatinine Clr Calc Pharmacy 30.1 ml/min; Est GFR (Non-African American) 58.7 ml/min; Magnesium 1.9 mg/dl (1.7-2.4); Phosphorus 3.3 mg/dl (2.5-4.9); Potassium 3.9 mmol/L (3.5-5.1)
[2023-10-06] MEDS: ACETAMINOPHEN 500 MG TAB PO SCH ×3 (08:27→22:11)
[2023-10-06] MEDS: LIDOCAINE 5% 1 PATCH TD SCH (08:28)
[2023-10-06] MEDS: CEROVITE ADV FORMULA TAB PO SCH (08:28)
[2023-10-06] MEDS: CHOLECALCIFEROL 5,000 UNITS 125 MCG TAB PO SCH (08:28)
[2023-10-06] MEDS: CALCIUM 600MG + VIT D 400 IU TAB PO SCH ×2 (08:29→22:00)
[2023-10-06] MEDS: LACTATED RINGER'S 1,000 ML IV SCH ×2 (09:35→16:11)
--- NOTE | 2023-10-06 17:16 | Hospitalist Progress Note ---
Date of Service October 06, 2023 Assessment & Plan (1) Closed pelvic fracture: Plan: 88 F presenting to ED for right hip pain following a mechanical fall. Now stable, admitted to hospital for acute bilateral fracture of pubic bone. Age-related osteoporotic fracture of the pelvis -Hip CT: "Fracture of right superior pubic ramus, parasymphyseal region. Acute on chronic appearing fracture of the right inferior pubic ramus. Nondisplaced fracture of the left superior pubic ramus. No femoral neck or intertrochanteric hip fracture." -Fall appears to be mechanical, without LOC, dizziness, headache, or other vi sual abnormalities. -Pain reasonably well-controlled on single dose of p.o. Tylenol 500 mg received in the ED.. * Scheduled pain control: IV Tylenol 1000 mg every 8 hours * Maintenance IVF: Lactated Ringer @80 mL/h * Vitamin D3 5000 units daily * Fall precautions * Tavarez catheter in place * Orthopedic surgery consult placed, conservative management. PT OT support home with home health Rheumatoid arthritis -Chronic. Takes hydroxychloroquine 200 mg nightly. * Continue Osteopenia -Chronic. Takes daily multivitamin (Alive Premium women's 50+), Caltrate 600 plus D, 1 tab twice daily. * Continue Code: Full code Dispo: Med-Surg DVT Prophylaxis: None PT/OT: Yes Consults: Orthopedic surgery (2) Ambulatory dysfunction: (3) Fall from slip, trip, or stumble: Admission and Anticipated Discharge Date Admission Date: October 05, 2023 Subjective Pt is doing well has no complaints and did well in physical therapy, anticipate home with home health Physical Exam Physical Exam: awake and alert no focal pain to movement no lower extremity edema Results & Data Results & Data Vital Signs (Past 12 Hours) Vital Signs Temp Pulse Resp BP Pulse Ox O2 Del Method 10/06/23 15:01 98.1 F 99 H 18 117/69 96 Room Air 10/06/23 10:21 97.9 F 64 16 96/64 L 96 Room Air 10/06/23 08:03 97.9 F 63 16 131/72 96 Room Air Laboratory Results reviewed cbc reviewed chemistry PG Care Time/CCT Total # of Minutes Spent Total Time Spent with Patient: Total time spent is greater than 50% in coordination of care (as documented) at patient's floor/unit and/or counseling patient: Coding Level of Care Code 45031 SUB INP/OBS CARE 2/35MIN Diagnoses Closed fracture of superior ramus of pubis, unspecified laterality, initial encounter S32.519A Encounter type: initial encounter Laterality: unspecified laterality Pelvic bone location: pubis Sublocation of pubis: superior rim Ambulatory dysfunction R26.2 Fall on same level from slipping, tripping or stumbling, initial encounter W01.0XXA Encounter type: initial encounter (1) Closed pelvic fracture Encounter type: initial encounter Laterality: unspecified laterality Pelvic bone location: pubis Sublocation of pubis: superior rim Qualified Code(s): S32.519A - Fracture of superior rim of unspecified pubis, initial encounter for closed fracture (3) Fall from slip, trip, or stumble Encounter type: initial encounter Qualified Code(s): W01.0XXA - Fall on same level from slipping, tripping and stumbling without subsequent striking against object, initial encounter
[2023-10-06] MEDS: HYDROXYCHLOROQUINE SULFATE 200 MG TAB PO SCH (22:00)
--- OUTSIDE RECORDS SUMMARY | 2023-10-07 00:16 | External Medical Summary | Summary of Care ---
Author Name Unknown Organization [facility] Address [address] [place] [address] Phone [phone] Care Team Providers Care Supervisor [employer] Name Role Phone Margaret Faye Primary Care Provider Encounter Details Date Type Department Care Team Description 07/06/2023 Orders Only Outcomes Research Department [address], [place] [id number] Jennifer Vasques CHRA [employer] Research Other*[id number] Allergies No known active allergiesdocumented as of this encounter (statuses as of 07/06/2023) Medications Medication Sig Dispensed Refills Start Date End Date Status MULTIVITAMINS PO CAPS daily 0 0 08/13/2009 Active CALCIUM + D 600-200 MG-UNIT PO TABS 2 tablets by mouth daily 0 09/10/2010 Active atorvaSTATin (LIPITOR) 10 MG Tablet Take 10 mg by mouth daily. 1 tab daily 0 10/23/2015 Active Risedronate Sodium 150 MG TABS Take 150 mg by mouth Every Month. 11 09/24/2018 Active DULoxetine HCl 20 MG Oral Capsule Delayed Release Particles (Cymbalta) Take 20 mg by mouth daily. 1 daily 0 07/28/2021 Active Hydroxychloroquine Sulfate 200 MG Oral Tablet (Plaquenil) Take by mouth 1 Tablet in the morning. 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 Malignant neoplasm of other specified si jenise of female breast 08/30/2009 documented as of this encounter (statuses as of 07/06/2023) Resolved Problems Problem Noted Date Resolved Date Polyarthropathy or polyarthritis of multiple sit es 05/04/2012 2020 Overview: ICD-10 update of inactive term Arthritis, rheumatoid 08/30/2009 01/15/2012 Long-term current use of steroids 08/30/2009 09/12/2019 documented as of this encounter (statuses as of 07/06/2023) Immunizations Name Administration Dates Next Due Pneumococcal Conjugate Vacc, 13 Valent (Prevnar) 10/18/2016 Pneumococcal Polysaccharide PPV23 (Pneumovax) 06/13/2009 Seasonal Influenza, Split, I IV3, With Preserve, Inj 08/23/2013,11/06/2012,09/23/2012(Defer red: Patient Refused - given at Dr. Mathur's office),08/23/2010,09/29/2009 Varicella Zoster Vaccine (Adult) 08/23/2013 documented as of this encounter Social History Tobacco Use Types Packs/Day Years Used Date Smoking Tobacco: Never Smokeless Tobacco: Never Alcohol Use Standard Drinks/Week Comments No 0 (1 standard drink = 0.6 oz pur e alcohol) Sex Assigned at Date Recorded Not on file Job Start Date Occupation Industry Not on file Not on file Not on file documented as of this encounter Plan of Treatment Upcoming Encounters Date Type Specialty Care Team Description 09/01/2023 Office Visit Rheumatology Binu Josue MD [address] [facility], [place] [id number] Scheduled Orders Name Type Priority Associated Diagnoses Orde r Schedule MYCODE INITIAL ADULT Lab Routine MyCode Research Other*[id number] Expected: 07/06/2023 (Approximate), Expires: 07/25/2024 Health Maintenance Due Date Last Done Comments Depression Screening, Annual for Pts 12 and Over 1947 DTaP,Tdap,and Td Vaccines (1 - Tdap) 1954 COVID-19 Vaccine (3 - Pfizer risk series) 04/10/2021 03/13/2021, 02/20/2021 Zoster Vaccines (2 of 2) 09/12/2021 07/18/2021, 10/11/2012 Influenza Vaccine (FLU shot) (#1) 2023 09/27/2019, 08/23/2013, 11/06/2012, Additional history exists DXA Scan 12/01/2029 12/01/2022, 12/21/2017 Pneumococcal Vaccine: 65+ Years Completed 10/18/2016, 06/13/2009 GARDASIL-HPV IMMUNIZATION SERIES Aged Out No longer eligible based on patient's age to complete this topic Hepatitis B Aged Out No longer eligi ble based on patient's age to complete this topic MENINGOCOCCAL (MENACTRA/MENVEO) Aged Out No longer eligible based on patient's age to complete this topic documented as of this encounter Medical Devices Not on filedocumented as of this encounter Visit Diagnoses Diagnosis My[employer] Research Other*[id number] documented in this encounter Care Teams Supervisor [employer] Relationship Specialty Start Date End Date Margaret Faye CRNP [address] [place] [address] [place] [phone] PCP - General Nurse Practitioner 12/01/22 documented as of this encounter
--- OUTSIDE RECORDS SUMMARY | 2023-10-07 00:16 | External Medical Summary | Summary of Care ---
Author Name Unknown Organization [facility] Address [address] [facility] [place] [address] Phone [phone] Care Team Providers Care Accreditation Manager Name Role Phone Margaret Faye Primary Care Provider Reason for Visit * Reason Onset Date Comments Rheum Follow Up Follow up Medication Administration 09/01/2023 Flu an d/or Pneumo Inj Encounter Details Date Type Department Care Team Description 09/01/2023 Office Visit Rheumatology [place] [address] [employer] [place] [address] Binu Josue MD [facility] [place] [address] Palindromic rheumatism*; Encounter for therapeutic drug monitoring; Senile osteoporosis; Need for prophylactic vaccination and inoculation against influenza Allergies No known active allergiesdocumented as of this encounter (statuses as of 09/01/2023) Medications Medication Sig Dispensed Refills Start Date End Date Status MULTIVITAMINS PO CAPS daily 0 0 08/13/2009 Active CALCIUM + D 600-200 MG-UNIT PO TABS 2 tablets by mouth daily 0 09/10/2010 Active Hydroxychloroquin e Sulfate 200 MG Oral Tablet (Plaquenil) Take by mouth 1 Tablet in the morning. 90 Tablet 4 09/22/2022 Active atorvaSTATin (LIPITOR) 10 MG Tablet Take 10 mg by mouth daily. 1 tab daily 0 10/23/2015 09/01/2023 Discontinued (Medication List Clean Up) Risedronate Sodium 150 MG TABS Take 150 mg by mouth Every Month. 11 09/24/2018 09/01/2023 Discontinued (Medication List Clean Up) DULoxetine HCl 20 MG Oral Capsule Delayed Release Particles (Cymbalta) Take 20 mg by mouth daily. 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 Malignant neoplasm of other specified si jenise of female breast 08/30/2009 documented as of this encounter (statuses as of 09/01/2023) Resolved Problems Problem Noted Date Resolved Date Polyarthropathy or polyarthritis of multiple sit es 05/04/2012 2020 Overview: ICD-10 update of inactive term Arthritis, rheumatoid 08/30/2009 01/15/2012 Long-term current use of steroids 08/30/2009 09/12/2019 documented as of this encounter (statuses as of 09/01/2023) Immunizations Name Administration Dates Next Due COVID-19 mRNA, LNP-s, No Pre serve, 2-Dose Series (Pfizer) 03/13/2021,02/20/2021 Pneumococcal Conjugate Vacc, 13 Valent (Prevnar) 10/18/2016 Pneumococcal Polysaccharide PPV23 (Pneumovax) 11/12/2017,12/17/2011,06/13/2009 Seasonal Influenza, Quadriva lent Hd (Fluzone Hd) 09/01/2023 Seasonal Influenza, Split, I IV3, With Preserve, Inj 08/23/2013,11/06/2012,09/23/2012(Defer red: Patient Refused - given at Dr. Mathur's office),08/23/2010,09/29/2009 Seasonal Influenza, Trivalen t, High Dose, No Preserve, IM 09/27/2019 Varicella Zoster Vaccine (Adult) 08/23/2013 Zoster Vaccine Recombinant (Shingrix) 07/18/2021 documented as of this encounter Social History Tobacco Use Types Packs/Day Years Used Date Smoking Tobacco: Never Smokeless Tobacco: Never Tobacco Cessation:Counseling Given: Not Answered Alcohol Use Standard Drinks/Week Comments No 0 (1 standard drink = 0.6 oz pur e alcohol) Sex Assigned at Date Recorded Not on file Job Start Date Occupation Industry Not on file Not on file Not on file documented as of this encounter Last Filed Vital Signs Vital Sign Reading Time Taken Comments Blood Pressure 158/70 09/01/2023 1:33 PM EDT Pulse - - Temperature 36.9 C (98.4 F) 09/01/2023 1:33 PM ED T Respiratory Rate - - Oxygen Saturation - - Inhaled Oxygen Concentration - - Weight 40.9 kg (90 lb 3.2 oz) 09/01/2023 1:33 PM EDT Height - - Body Mass Index 18.53 04/18/2015 1:53 PM EDT documented in this encounter Patient Instructions * Patient Instructions* Kaylin Clifford LPN - 09/01/2023 1:59 PM EDT ~~PATIENT INSTRUCTIONS FOR FLU SHOT~~ Possible side effects of influenza vaccine, (flu shot), are usually mild and include: 1. Soreness or redness at injection site 2. Low grade fever 3. Body aches You may use Tylenol/Acetaminophen as needed for these symptoms. LET YOUR DOCTOR KNOW IMMEDIATELY IF YOU HAVE DIFFICULTY BREATHING OR SWALLOWING, EXPERIENCE ITCHINGOF FEET OR HANDS, HAVE SWELLING OF EYES, FACE OR INSIDE OF NOSE. documented in this encounter Progress Notes * Kaylin Clifford LPN - 09/01/2023 1:57 PM EDT PRE - ADMINISTRATION DOCUMENTATION Are you experiencing any cold symptoms or fever? No Have you had Guillain-Kentland Syndrome (an illness that causes paralysis) within the last 6 weeks? No Have you had the flu shot in the past? YES Have you ever had a reaction to the flu shot? No Kaylin Clifford LPN, 09/01/2023 1:57 PM Immunization Administration Documentation Time Out Procedure Performed: Yes Patient Identified (Ask Name/Date of ): Yes Does the patient have a fever greater than 101 degrees today? No Patient allergic to latex? No VFC Stock: No Immunization(s) verified: Yes, Immunization Name: Flu, VIS Sheet(s) given: Yes Verified Side and Site: Yes Verified Shot(s) with Parent(s)/Patient: Yes * Binu Josue MD - 09/01/2023 1:46 PM EDT Subjective: Patient seen today for further follow up evaluation of seronegative polyarthritis, osteoporosis. Since the last visit she has remained on plaquenil. Is no longer on Actonel given her length of use ofbisphosphonates. Reviewed most recent DEXA again with her. No falls or fractures. No steroid use she would like the flu vaccine today. Musculoskeletal ROS: . Normal Other ROS: . Constitutional: normal . Head normal . Eyes: normal . Ears, nose, throat, mouth: normal . Cardiovascular: murmur . Respiratory: normal . Gastrointestinal: normal . Genitourinary: normal . Skin: normal Social History: Social History Tobacco Use Smoking status: Never Smokeless tobacco: Never Substance Use Topics Alcohol use: No Vaping/E-Cigarette Use Vaping/E-Cigarette Substances Vaping/E-Cigarette Devices Current Outpatient Medications Medication Sig Dispense Refill MULTIVITAMINS PO CAPS daily 0 0 CALCIUM + D 600-200 MG-UNIT PO TABS 2 tablets by mouth daily 0 Hydroxychloroquine Sulfate 200 MG Oral Tablet (Plaquenil) Take by mouth 1 Tablet in the morning. 90Tablet 4 No current facility-administered medications for this visit. Physical Exam: BP 158/70 (BP Site: Right Arm, BP Position: Sitting) | Temp 36.9 C (98.4 F) (Infrared ) | Wt 40.9 kg (90 lb 3.2 oz) | BMI 18.53 kg/m | BSA 1.3 m General: alert, no distress, and well nourished Neck: supple, no adenopathy, thyroid normal size, non-tender, without nodularity Lymph: no palpable lymphadenopathy Heart: regular rate & rhythm, no gallops, and 5/6 harsh ALICIA Lungs: clear to auscultation , no rales, wheezes or rhonchi Abdomen: abdomen soft, non-tender, and normal bowel sounds Musculoskeletal Exam: No synovitis of the hands noted Good muscle strength Thoracic kyphosis noted Assessment: 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 Does get yearly eye exams. Currently on drug holiday from bisphosphonate therapy. Plan: 1. Flu shot given today 2. Continue on Plaquenil 3. Continue with drug holiday from bisphosphonate therapy 4. Return to clinic 1 year Binu Josue MD Department of Rheumatology documented in this encounter Nursing Notes * Kaylin Clifford LPN - 09/01/2023 1:33 PM EDT Chief Complaint Patient presents with Rheum Follow Up Follow up documented in this encounter Plan of Treatment Upcoming Encounters Date Type Specialty Care Team Description 09/06/2024 Office Visit Rheumatology Binu Josue MD [address] [place] [address] Scheduled Orders Name Type Priority Associated Diagnoses Orde r Schedule BASIC METABOLIC PANEL Lab Routine Palindromic rheumatism Senile osteoporosis Ordered: 09/01/2023 25-HYDROXY VITAMIN D Lab Routine Palindromic rheumatism Senile osteoporosis Ordered: 09/01/2023 Health Maintenance Due Date Last Done Comments Depression Screening 1947 DTaP,Tdap,and Td Vaccines (1 - Tdap) 1954 VITAMIN D LEVEL ONCE IN A LIFETIME-USE SMARTSET# [id number] 1975 COVID-19 Vaccine (3 - Pfizer risk series) 04/10/2021 03/13/2021, 02/20/2021 Zoster Vaccines (2 of 2) 09/12/2021 07/18/2021, 10/11/2012 DXA Scan 12/01/2024 12/01/2022, 12/21/2017 Pneumococcal Vaccine: 65+ Years Completed 11/12/2017, 10/18/2016, 12/17/2011, Additional history exists Influenza Vaccine (FLU shot) Completed 08/2023, 09/27/2019, 08/23/2013, Additional history exists GARDASIL-HPV IMMUNIZATION SERIES Aged Out No longer [...] as of this encounter Visit Diagnoses Diagnosis Palindromic rheumatism- Primary Palindromic rheumatism, site unspecified Encounter for therapeutic drug monitoring Senile osteoporosis Need for prophylactic vaccination and inoculation against influenza documented in this encounter Care Teams Accreditation Manager Relationship Specialty Start Date End Date Margaret Faye CRNP [address] [place] [address] [place] [address] PCP - General Nurse Practitioner 12/01/22 documented as of this encounter"
[2023-10-07 06:38] LABS: Hemoglobin 9.8 g/dl (12.0-16.0); Mean Corpuscular Hemoglobin 28.7 pg (25.0-34.0); Mean Corpuscular Hgb Conc 31.6 g/dL (32.0-36.0); Mean Corpuscular Volume 90.6 fL (80.0-100.0); Mean Platelet Volume 11.4 fL (9.4-12.4); Platelet Count 170 K/uL (130-400); RDW Coefficient of Variation 14.6 % (11.5-14.5); Red Blood Count 3.42 M/uL (4.20-5.40); White Blood Count 13.46 K/ul (4.8-10.8)
[2023-10-07] MEDS: traMADol HCL 50 MG TABLET PO PRN (07:57)
[2023-10-07] MEDS: CHOLECALCIFEROL 5,000 UNITS 125 MCG TAB PO SCH (08:27)
[2023-10-07] MEDS: CALCIUM 600MG + VIT D 400 IU TAB PO SCH ×2 (08:27→20:39)
[2023-10-07] MEDS: CEROVITE ADV FORMULA TAB PO SCH (08:27)
[2023-10-07] MEDS: LIDOCAINE 5% 1 PATCH TD SCH (08:28)
[2023-10-07] MEDS: ACETAMINOPHEN 500 MG TAB PO SCH ×3 (08:34→20:39)
[2023-10-07 08:36] LABS: BUN Creatinine Ratio 19.8 (10-20); Calcium 9.7 mg/dl (8.6-10.3); Creatinine Clr Calc Pharmacy 29.1 ml/min; Est GFR (African American) 65.3 ml/min; Est GFR (Non-African American) 56.3 ml/min; Magnesium 1.7 mg/dl (1.7-2.4); Phosphorus 3.7 mg/dl (2.5-4.9); Potassium 4.3 mmol/L (3.5-5.1)
--- NOTE | 2023-10-07 16:52 | Hospitalist Progress Note ---
Date of Service October 07, 2023 Assessment & Plan (1) Closed pelvic fracture: Plan: 88 F presenting to ED for right hip pain following a mechanical fall. Now stable, admitted to hospital for acute bilateral fracture of pubic bone. Age-related osteoporotic fracture of the pelvis Acute blood loss anemia secondary to fracture -Hip CT: "Fracture of right superior pubic ramus, parasymphyseal region. Acute on chronic appearing fracture of the right inferior pubic ramus. Nondisplaced fracture of the left superior pubic ramus. No femoral neck or intertrochanteric hip fracture." -Fall appears to be mechanical, without LOC, dizziness, headache, or other visual abnormalities. -Pain reasonably well-controlled on single dose of p.o. Tylenol 500 mg received in the ED.. * Scheduled pain control: IV Tylenol 1000 mg every 8 hours * Vitamin D3 5000 units daily * Fall precautions * Discontinued Tavarez catheter * Orthopedic surgery consult placed, conservative management. PT OT support home with home health Rheumatoid arthritis -Chronic. Takes hydroxychloroquine 200 mg nightly. * Continue Osteopenia -Chronic. Takes daily multivitamin (Alive Premium women's 50+), Caltrate 600 plus D, 1 tab twice daily. * Continue Code: Full code Dispo: Med-Surg DVT Prophylaxis: Patient is ambulating with a walker PT/OT: Yes Consults: Orthopedic surgery nonsurgical intervention is recommended (2) Ambulatory dysfunction: (3) Fall from slip, trip, or stumble: Admission and Anticipated Discharge Date Admission Date: October 05, 2023 Subjective Pt is doing well has no complaints and did well in physical therapy, anticipate home with home health Physical Exam Physical Exam: awake and alert no focal pain to movement no lower extremity edema Results & Data Results & Data Vital Signs (Past 12 Hours) Vital Signs Temp Pulse Resp BP Pulse Ox O2 Del Method 10/07/23 14:35 98.6 F 92 H 16 103/64 97 Room Air 10/07/23 07:47 98.1 F 79 18 115/69 96 Room Air Laboratory Results Reviewed CBC Reviewed chemistry PG Care Time/CCT Total # of Minutes Spent Total Time Spent with Patient: Total time spent is greater than 50% in coordination of care (as documented) at patient's floor/unit and/or counseling patient: Coding Level of Care Code 78804 SUB INP/OBS CARE 2/35MIN Diagnoses Closed fracture of superior ramus of pubis, unspecified laterality, initial encounter S32.519A Encounter type: initial encounter Laterality: unspecified laterality Pelvic bone location: pubis Sublocation of pubis: superior rim Ambulatory dysfunction R26.2 Fall on same level from slipping, tripping or stumbling, initial encounter W01.0XXA Encounter type: initial encounter (1) Closed pelvic fracture Encounter type: initial encounter Laterality: unspecified laterality Pelvic bone location: pubis Sublocation of pubis: superior rim Qualified Code(s): S32.519A - Fracture of superior rim of unspecified pubis, initial encounter for closed fracture (3) Fall from slip, trip, or stumble Encounter type: initial encounter Qualified Code(s): W01.0XXA - Fall on same level from slipping, tripping and stumbling without subsequent striking against object, initial encounter
[2023-10-07] MEDS: HYDROXYCHLOROQUINE SULFATE 200 MG TAB PO SCH (20:39)
[2023-10-08 08:05] LABS: Hematocrit (blood only) 28.1 % (37.0-47.0); Hemoglobin 9.1 g/dl (12.0-16.0); Mean Corpuscular Hemoglobin 29.1 pg (25.0-34.0); Mean Corpuscular Hgb Conc 32.4 g/dL (32.0-36.0); Mean Corpuscular Volume 89.8 fL (80.0-100.0); Platelet Count 164 K/uL (130-400); RDW Coefficient of Variation 14.6 % (11.5-14.5); RDW Standard Deviation 47.6 fL (36.4-46.3); Red Blood Count 3.13 M/uL (4.20-5.40); White Blood Count 15.22 K/ul (4.8-10.8)
[2023-10-08 08:25] LABS: BUN Creatinine Ratio 23.2 (10-20); Calcium 9.6 mg/dl (8.6-10.3); Creatinine Clr Calc Pharmacy 27.9 ml/min; Est GFR (Non-African American) 53.5 ml/min; Magnesium 1.7 mg/dl (1.7-2.4); Phosphorus 3.2 mg/dl (2.5-4.9)
[2023-10-08] MEDS: ACETAMINOPHEN 500 MG TAB PO SCH ×3 (08:48→20:24)
[2023-10-08] MEDS: CALCIUM 600MG + VIT D 400 IU TAB PO SCH ×2 (08:48→20:21)
[2023-10-08] MEDS: CHOLECALCIFEROL 5,000 UNITS 125 MCG TAB PO SCH (08:48)
[2023-10-08] MEDS: CEROVITE ADV FORMULA TAB PO SCH (08:48)
[2023-10-08] MEDS: LIDOCAINE 5% 1 PATCH TD SCH (08:52)
--- NOTE | 2023-10-08 14:59 | Hospitalist Progress Note ---
Date of Service October 08, 2023 Assessment & Plan (1) Closed pelvic fracture: Plan: 88 F presenting to ED for right hip pain following a mechanical fall. Now stable, admitted to hospital for acute bilateral fracture of pubic bone. Age-related osteoporotic fracture of the pelvis -Hip CT: "Fracture of right superior pubic ramus, parasymphyseal region. Acute on chronic appearing fracture of the right inferior pubic ramus. Nondisplaced fracture of the left superior pubic ramus. No femoral neck or intertrochanteric hip fracture." -Fall appears to be mechanical, without LOC, dizziness, headache, or other visual abnormalities. Does have severe but description of fall not consistent with syncope -continue pain control: IV Tylenol 1000 mg every 8 hours, tramadol prn -Fall precautions -Orthopedic surgery consult placed, conservative management -awaiting rehab placement (2) Fall from slip, trip, or stumble: Plan: as above, mechanical (3) Leukocytosis: Plan: WBC count continues to rise the last 2 days now up to 15 Patient has no complaints and is afebrile although she is getting tylenol scheduled tid Lungs sound clear, is moving bowels, ambulating with assistance and OOB to chair so doubt from atelectasis or PNA -check UA -follow CBC -if spikes fever, would check blood cultures, CXR, and assess for viral infection (4) Aortic stenosis: Plan: severe on last ECHO here with fall but no syncope or presyncope, no chest pain-doubt fall related to follows with Dr. Johnston and she is to see [facility] for eval for TAVR no need to repeat ECHO now but is to have one in Nov (5) Osteoporosis: Plan: on bisphosphonates, follows with Rheum (6) Rheumatoid arthritis: Plan: seroneg polyarthritis, follows with Rheum continue Plaquenil (7) Severe anemia: Plan: Acute blood loss anemia secondary to fracture Plan DVT proph-add Lovenox SQ Dispo-awaiting rehab placement-insurance auth pending to [facility] Admission and Anticipated Discharge Date Admission Date: October 05, 2023 Subjective Pt reports pain is controlled in her pelvis. Denies CP, SOB. She is moving her bowels, eating, no other complaints. Afebrile Physical Exam Constitutional: WD/WN, vitals as above Respiratory: normal respiratory effort, lungs clear to auscultation Cardiovascular: Rate/Rhythm: regular rate and regular rhythm Heart Sounds: + murmur (3/6 ALICIA at RUSB) Extremities: no edema Chest (Breasts): Chest: + abnormal inspection of chest (pectus carinatum) Gastrointestinal (Abdomen): normal bowel sounds, soft, nontender, no hepatosplenomegaly Psychiatric: A+Ox3, euthymic affect Results & Data Results & Data Vital Signs (Past 12 Hours) Vital Signs Temp Pulse Resp BP Pulse Ox O2 Del Method 10/08/23 10:32 Room Air 10/08/23 07:55 36.9 C 76 15 110/68 95 Room Air Laboratory Results CBC, BMP, magnesium reviewed PG Care Time/CCT Total # of Minutes Spent Total Time Spent with Patient: Total time spent is greater than 50% in coordination of care (as documented) at patient's floor/unit and/or counseling patient: Coding Level of Care Code 73690 SUB INP/OBS CARE 2/35MIN Diagnoses Closed fracture of superior ramus of pubis, unspecified laterality, initial encounter S32.519A Encounter type: initial encounter Laterality: unspecified laterality Pelvic bone location: pubis Sublocation of pubis: superior rim Fall on same level from slipping, tripping or stumbling, initial encounter W01.0XXA Encounter type: initial encounter Leukocytosis D72.829 Aortic stenosis I35.0 Osteoporosis M81.0 Rheumatoid arthritis M06.9 Severe anemia D64.9 (1) Closed pelvic fracture Encounter type: initial encounter Laterality: unspecified laterality Pelvic bone location: pubis Sublocation of pubis: superior rim Qualified Code(s): S32.519A - Fracture of superior rim of unspecified pubis, initial encounter for closed fracture (2) Fall from slip, trip, or stumble Encounter type: initial encounter Qualified Code(s): W01.0XXA - Fall on same level from slipping, tripping and stumbling without subsequent striking against object, initial encounter
[2023-10-08] MEDS: ENOXAPARIN INJ 30 MG/0.3 ML SYR SQ SCH (17:05)
[2023-10-08] MEDS: ONDANSETRON 4 MG OD TAB PO PRN (17:22)
[2023-10-08] MEDS: HYDROXYCHLOROQUINE SULFATE 200 MG TAB PO SCH (20:21)
[2023-10-09 06:25] LABS: Hematocrit (blood only) 31.2 % (37.0-47.0); Hemoglobin 9.8 g/dl (12.0-16.0); Mean Corpuscular Hemoglobin 28.3 pg (25.0-34.0); Mean Corpuscular Hgb Conc 31.4 g/dL (32.0-36.0); Mean Corpuscular Volume 90.2 fL (80.0-100.0); Mean Platelet Volume 11.7 fL (9.4-12.4); Platelet Count 200 K/uL (130-400); RDW Coefficient of Variation 14.9 % (11.5-14.5); RDW Standard Deviation 48.9 fL (36.4-46.3); Red Blood Count 3.46 M/uL (4.20-5.40); White Blood Count 12.88 K/ul (4.8-10.8)
[2023-10-09 06:47] LABS: Albumin Level 3.5 gm/dl (3.4-5.0); BUN Creatinine Ratio 22.9 (10-20); Bilirubin Direct 0.1 mg/dl (0-0.2); Bilirubin,Total 0.8 mg/dl (0.2-1.0); Calcium 10.1 mg/dl (8.6-10.3); Creatinine Clr Calc Pharmacy 25.3 ml/min; Est GFR (African American) 54.9 ml/min; Est GFR (Non-African American) 47.4 ml/min; Magnesium 1.8 mg/dl (1.7-2.4); Potassium 3.9 mmol/L (3.5-5.1); Total Protein 6.4 gm/dl (6.0-8.3)
[2023-10-09] MEDS: CEROVITE ADV FORMULA TAB PO SCH (08:40)
[2023-10-09] MEDS: CHOLECALCIFEROL 5,000 UNITS 125 MCG TAB PO SCH (08:40)
[2023-10-09] MEDS: CALCIUM 600MG + VIT D 400 IU TAB PO SCH ×2 (08:40→20:46)
[2023-10-09] MEDS: ACETAMINOPHEN 500 MG TAB PO SCH ×3 (08:45→20:51)
[2023-10-09] MEDS: LIDOCAINE 5% 1 PATCH TD SCH (08:45)
[2023-10-09 08:54] LABS: Appearance Urine Cloudy (Clear); Bacteria Urine Automated 2+ (Negative); Bilirubin Urine Negative (Negative); Blood Urine Negative (Negative); Cast Urine Automated 0 /lpf (0-5); Color Urine Yellow; Glucose Urine UA Negative (Negative); Ketones Urine Negative (Negative); Leukocyte Esterase Urine Trace (Negative); Nitrite Urine Negative (Negative); Protein Urine 1+ (Negative); RBC Urine Automated 0-4 /hpf (0-4); Urobilinogen Urine Negative (Negative); pH Urine 6.5 (4.5-7.5)
[2023-10-09] MEDS: cephALEXin 250 MG CAP PO SCH ×2 (12:52→20:47)
[2023-10-09] MEDS: ENOXAPARIN INJ 30 MG/0.3 ML SYR SQ SCH (16:04)
--- NOTE | 2023-10-09 16:26 | Hospitalist Progress Note ---
Date of Service October 09, 2023 Assessment & Plan (1) Closed pelvic fracture: Plan: 88 F presenting to ED for right hip pain following a mechanical fall. Now stable, admitted to hospital for acute bilateral fracture of pubic bone. Age-related osteoporotic fracture of the pelvis -Hip CT: "Fracture of right superior pubic ramus, parasymphyseal region. Acute on chronic appearing fracture of the right inferior pubic ramus. Nondisplaced fracture of the left superior pubic ramus. No femoral neck or intertrochanteric hip fracture." -Fall appears to be mechanical, without LOC, dizziness, headache, or other visual abnormalities. Does have severe but description of fall not consistent with syncope -continue pain control: IV Tylenol 1000 mg every 8 hours, tramadol prn -Fall precautions -Orthopedic surgery consult placed, conservative management -awaiting rehab placement (2) Fall from slip, trip, or stumble: Plan: as above, mechanical (3) Leukocytosis: Plan: WBC count chad up to 15 and found to have a UTI_ WBC count down to 12 without treatment Patient has no complaints and is afebrile although she is getting tylenol scheduled tid Lungs sound clear, is moving bowels, ambulating with assistance and OOB to chair so doubt from atelectasis or PNA UA abnormal--> start keflex, follow Ur cx -follow CBC -if spikes fever, would check blood cultures, CXR, and assess for viral infection (4) Aortic stenosis: Plan: severe on last ECHO here with fall but no syncope or presyncope, no chest pain-doubt fall related to follows with Dr. Johnston and she is to see [facility] for eval for TAVR no need to repeat ECHO now but is to have one in Nov (5) Osteoporosis: Plan: on bisphosphonates, follows with Rheum (6) Rheumatoid arthritis: Plan: seroneg polyarthritis, follows with Rheum continue Plaquenil (7) Severe anemia: Plan: Acute blood loss anemia secondary to fracture hgb stable to improved at 9.8 (8) UTI (urinary tract infection): Plan: as above started keflex, follow ur cx Plan DVT proph-Lovenox SQ Constipation-add docusate Dispo-awaiting rehab placement-insurance authdenied for [facility], now awaiting rehab bed at [facility] next week Discussed care with her daughter on phone. Gave option to go home with 24/7 care but pt and family prefer she stay and go to SNF Admission and Anticipated Discharge Date Admission Date: October 05, 2023 Subjective Pt reports pain is improving, is able to do more with her leg lifts while seated. Is feeling constipated Physical Exam Constitutional: WD/WN, vitals as above Respiratory: normal respiratory effort, lungs clear to auscultation Cardiovascular: Rate/Rhythm: regular rate and regular rhythm Heart Sounds: + murmur (3/6 ALICIA at RUSB) Extremities: no edema Chest (Breasts): Chest: + abnormal inspection of chest (pectus carinatum) Psychiatric: A+Ox3, euthymic affect Results & Data Results & Data Vital Signs (Past 12 Hours) Vital Signs Temp Pulse Pulse Resp BP Pulse Ox O2 Del Method 10/09/23 14:40 37.0 C 84 15 102/69 93 Room Air 10/09/23 12:12 37.4 C 100 H 22 113/59 L 98 Room Air 10/09/23 08:35 37.4 C 90 22 124/70 94 Room Air Laboratory Results CBC, BMP, LFTs, magnesium, and UAreviewed PG Care Time/CCT Total # of Minutes Spent Total Time Spent with Patient: Total time spent is greater than 50% in coordination of care (as documented) at patient's floor/unit and/or counseling patient: Coding Level of Care Code 61421 SUB INP/OBS CARE 2/35MIN Diagnoses Closed fracture of superior ramus of pubis, unspecified laterality, initial encounter S32.519A Encounter type: initial encounter Laterality: unspecified laterality Pelvic bone location: pubis Sublocation of pubis: superior rim Fall on same level from slipping, tripping or stumbling, initial encounter W01.0XXA Encounter type: initial encounter Leukocytosis D72.829 Aortic stenosis I35.0 Osteoporosis M81.0 Rheumatoid arthritis M06.9 Severe anemia D64.9 UTI (urinary tract infection) N39.0 (1) Closed pelvic fracture Encounter type: initial encounter Laterality: unspecified laterality Pelvic bone location: pubis Sublocation of pubis: superior rim Qualified Code(s): S32.519A - Fracture of superior rim of unspecified pubis, initial encounter for closed fracture (2) Fall from slip, trip, or stumble Encounter type: initial encounter Qualified Code(s): W01.0XXA - Fall on same level from slipping, tripping and stumbling without subsequent striking against object, initial encounter
[2023-10-09] MEDS: DOCUSATE SODIUM 100 MG CAP PO SCH (16:37)
[2023-10-09] MEDS ORDERED: POLYETHYLENE (MIRALAX) 17 GM PACK PO PRN (16:41)
[2023-10-09] MEDS: HYDROXYCHLOROQUINE SULFATE 200 MG TAB PO SCH (20:47)
[2023-10-09] MEDS: SENNA 8.6 MG TAB PO SCH (20:51)
[2023-10-10 07:36] LABS: Hematocrit (blood only) 27.5 % (37.0-47.0); Hemoglobin 8.8 g/dl (12.0-16.0); Mean Corpuscular Hemoglobin 28.2 pg (25.0-34.0); Mean Corpuscular Volume 88.1 fL (80.0-100.0); Mean Platelet Volume 12.1 fL (9.4-12.4); Platelet Count 214 K/uL (130-400); RDW Standard Deviation 48.3 fL (36.4-46.3); Red Blood Count 3.12 M/uL (4.20-5.40); White Blood Count 8.66 K/ul (4.8-10.8)
[2023-10-10 07:59] LABS: Calcium 9.8 mg/dl (8.6-10.3); Magnesium 1.8 mg/dl (1.7-2.4); Potassium 3.9 mmol/L (3.5-5.1)
[2023-10-10 08:04] LABS: Creatinine Clr Calc Pharmacy 28.8 ml/min; Est GFR (African American) 64.4 ml/min; Est GFR (Non-African American) 55.6 ml/min
[2023-10-10] MEDS: CEROVITE ADV FORMULA TAB PO SCH (08:45)
[2023-10-10] MEDS: cephALEXin 250 MG CAP PO SCH ×2 (08:45→20:36)
[2023-10-10] MEDS: CHOLECALCIFEROL 5,000 UNITS 125 MCG TAB PO SCH (08:45)
[2023-10-10] MEDS: CALCIUM 600MG + VIT D 400 IU TAB PO SCH ×2 (08:45→20:35)
[2023-10-10] MEDS: DOCUSATE SODIUM 100 MG CAP PO SCH ×2 (08:45→20:36)
[2023-10-10] MEDS: LIDOCAINE 5% 1 PATCH TD SCH (08:47)
[2023-10-10] MEDS: ACETAMINOPHEN 500 MG TAB PO SCH ×3 (08:50→20:38)
--- NOTE | 2023-10-10 14:05 | Hospitalist Progress Note ---
Date of Service October 10, 2023 Assessment & Plan (1) Closed pelvic fracture: Plan: 88 F presenting to ED for right hip pain following a mechanical fall. Now stable, admitted to hospital for acute bilateral fracture of pubic bone. Age-related osteoporotic fracture of the pelvis -Hip CT: "Fracture of right superior pubic ramus, parasymphyseal region. Acute on chronic appearing fracture of the right inferior pubic ramus. Nondisplaced fracture of the left superior pubic ramus. No femoral neck or intertrochanteric hip fracture." -Fall appears to be mechanical, without LOC, dizziness, headache, or other visual abnormalities. Does have severe but description of fall not consistent with syncope -continue pain control: Tylenol 1000 mg every 8 hours, tramadol prn, lidocaine patch-pain controlled -Fall precautions -Orthopedic surgery consult placed, conservative management -awaiting rehab placement (2) Fall from slip, trip, or stumble: Plan: as above, mechanical (3) Leukocytosis: Plan: WBC count chad up to 15 and found to have a UTI on UA although some epis contaminated WBC count down to 12 without treatment and now back to normal after starting antibiotics Patient has no complaints and is afebrile although she is getting tylenol scheduled tid Lungs sound clear, is moving bowels, ambulating with assistance and OOB to chair so doubt from atelectasis or PNA UA abnormal-->Ur cx mixed ryan--> finish out 5 days of keflex through 10/12 -if spikes fever, would check blood cultures, CXR, and assess for viral infection (4) Aortic stenosis: Plan: severe on last ECHO here with fall but no syncope or presyncope, no chest pain-doubt fall related to follows with Dr. Johnston and she is to see [facility] for eval for TAVR no need to repeat ECHO now but is to have one in Nov (5) Osteoporosis: Plan: on bisphosphonates, follows with Rheum (6) Rheumatoid arthritis: Plan: seroneg polyarthritis, follows with Rheum continue Plaquenil (7) Severe anemia: Plan: Acute blood loss anemia secondary to fracture hgb stable at 8-9 (8) UTI (urinary tract infection): Plan: as above continue keflex, follow ur cx Plan DVT proph-Lovenox SQ Constipation-resolved, continue docusate and senna, Miralax prn Dispo-awaiting rehab placement-insurance auth denied for [facility], now awaiting rehab bed at [facility] next week Discussed care with her daughter on phone and at bedside on 10/10. Gave option to go home with 15/06 care but pt and family prefer she stay and go to SNF- awaiting [facility] bed hopefully Thursday Admission and Anticipated Discharge Date Admission Date: October 05, 2023 Subjective No concerns, moving bowels now. Good appetite. Pain controlled in pelvis Discussed her care with her daughter at bedside Physical Exam Constitutional: WD/WN, vitals as above Respiratory: normal respiratory effort, lungs clear to auscultation Cardiovascular: Rate/Rhythm: regular rate and regular rhythm Heart Sounds: + murmur (3/6 ALICIA at RUSB) Extremities: no edema Chest (Breasts): Chest: + abnormal inspection of chest (pectus carinatum) Psychiatric: A+Ox3, euthymic affect Results & Data Results & Data Vital Signs (Past 12 Hours) Vital Signs Temp Pulse Resp BP Pulse Ox O2 Del Method 10/10/23 07:14 37.1 C 81 16 102/67 94 Room Air Laboratory Results CBC, BMP, Ur cx reviewed PG Care Time/CCT Total # of Minutes Spent Total Time Spent with Patient: Total time spent is greater than 50% in coordination of care (as documented) at patient's floor/unit and/or counseling patient: Coding Level of Care Code 56343 SUB INP/OBS CARE 2/35MIN Diagnoses Closed fracture of superior ramus of pubis, unspecified laterality, initial encounter S32.519A Encounter type: initial encounter Laterality: unspecified laterality Pelvic bone location: pubis Sublocation of pubis: superior rim Fall on same level from slipping, tripping or stumbling, initial encounter W01.0XXA Encounter type: initial encounter Leukocytosis D72.829 Aortic stenosis I35.0 Osteoporosis M81.0 Rheumatoid arthritis M06.9 Severe anemia D64.9 UTI (urinary tract infection) N39.0 (1) Closed pelvic fracture Encounter type: initial encounter Laterality: unspecified laterality Pelvic bone location: pubis Sublocation of pubis: superior rim Qualified Code(s): S32.519A - Fracture of superior rim of unspecified pubis, initial encounter for closed fracture (2) Fall from slip, trip, or stumble Encounter type: initial encounter Qualified Code(s): W01.0XXA - Fall on same level from slipping, tripping and stumbling without subsequent striking against object, initial encounter
[2023-10-10] MEDS: ENOXAPARIN INJ 30 MG/0.3 ML SYR SQ SCH (16:08)
[2023-10-10] MEDS: HYDROXYCHLOROQUINE SULFATE 200 MG TAB PO SCH (20:36)
[2023-10-10] MEDS: SENNA 8.6 MG TAB PO SCH (20:36)
[2023-10-11] MEDS: CEROVITE ADV FORMULA TAB PO SCH (09:04)
[2023-10-11] MEDS: CALCIUM 600MG + VIT D 400 IU TAB PO SCH (09:04)
[2023-10-11] MEDS: cephALEXin 250 MG CAP PO SCH (09:04)
[2023-10-11] MEDS: CHOLECALCIFEROL 5,000 UNITS 125 MCG TAB PO SCH (09:05)
[2023-10-11] MEDS: DOCUSATE SODIUM 100 MG CAP PO SCH (09:05)
[2023-10-11] MEDS: LIDOCAINE 5% 1 PATCH TD SCH (09:06)
[2023-10-11] MEDS: ACETAMINOPHEN 500 MG TAB PO SCH ×2 (09:12→13:58)
--- NOTE | 2023-10-11 14:53 | Hospitalist Progress Note ---
Date of Service October 11, 2023 Assessment & Plan (1) Closed pelvic fracture: Plan: 88 F presenting to ED for right hip pain following a mechanical fall. Now stable, admitted to hospital for acute bilateral fracture of pubic bone. Age-related osteoporotic fracture of the pelvis -Hip CT: "Fracture of right superior pubic ramus, parasymphyseal region. Acute on chronic appearing fracture of the right inferior pubic ramus. Nondisplaced fracture of the left superior pubic ramus. No femoral neck or intertrochanteric hip fracture." -Fall appears to be mechanical, without LOC, dizziness, headache, or other visual abnormalities. Does have severe but description of fall not consistent with syncope -continue pain control: change Tylenol 1000 mg every 8 hours from cheduled to prn;continue tramadol prn, lidocaine patch-pain controlled -Fall precautions -Orthopedic surgery consult placed, conservative management -awaiting rehab placement (2) Fall from slip, trip, or stumble: Plan: as above, mechanical (3) Leukocytosis: Plan: WBC count chad up to 15 and found to have a UTI on UA although some epis contaminated WBC count down to 12 without treatment and then back to normal after starting antibiotics Patient has no complaints and is afebrile although was getting tylenol scheduled tid Lungs sound clear, is moving bowels, ambulating with assistance and OOB to chair so doubt from atelectasis or PNA UA abnormal-->Ur cx mixed ryan--> finish out 5 days of keflex through 10/12 -if spikes fever, would check blood cultures, CXR, and assess for viral infection (4) Aortic stenosis: Plan: severe on last ECHO here with fall but no syncope or presyncope, no chest pain-doubt fall related to follows with Dr. Johnston and she is to see [facility] for eval for TAVR no need to repeat ECHO now but is to have one in Nov (5) Osteoporosis: Plan: on bisphosphonates, follows with Rheum due to pill burden causing nausea, will dc Vit D and Calcium + Vit D as well as MVI (6) Rheumatoid arthritis: Plan: seroneg polyarthritis, follows with Rheum continue Plaquenil (7) Severe anemia: Plan: Acute blood loss anemia secondary to fracture hgb stable at 8-9 follow CBC as outpt (8) UTI (urinary tract infection): Plan: as above continue keflex through 10/12 Plan DVT proph-Lovenox SQ Constipation-resolved, continue docusate but dc senna to reduce pill burden, Miralax prn Dispo-awaiting rehab placement-insurance auth denied for [facility], now awaiting rehab bed at [facility] next week Discussed care with her daughter on phone and at bedside on 10/10. Gave option to go home with 24/7 care but pt and family prefer she stay and go to SNF- awaiting [facility] bed hopefully Thursday Admission and Anticipated Discharge Date Admission Date: October 05, 2023 Anticipated date of discharge: 10/12/23 Subjective Feeling nauseated today after taking 10 pills after eating breakfast. Otherwise pain is controlled. Moving bowels. Physical Exam Constitutional: WD/WN, vitals as above Respiratory: normal respiratory effort, lungs clear to auscultation Cardiovascular: Rate/Rhythm: regular rate and regular rhythm Heart Sounds: + murmur (3/6 ALICIA at RUSB) Extremities: no edema Chest (Breasts): Chest: + abnormal inspection of chest (pectus carinatum) Gastrointestinal (Abdomen): normal bowel sounds, soft, nontender, no hepatosplenomegaly Psychiatric: A+Ox3, euthymic affect Results & Data Results & Data Vital Signs (Past 12 Hours) Vital Signs Temp Pulse Resp BP Pulse Ox O2 Del Method 10/11/23 07:33 36.9 C 78 16 132/76 96 Room Air Laboratory Results no labs PG Care Time/CCT Total # of Minutes Spent Total Time Spent with Patient: Total time spent is greater than 50% in coordination of care (as documented) at patient's floor/unit and/or counseling patient: Coding Level of Care Code 41072 SUB INP/OBS CARE 2/35MIN Diagnoses Closed fracture of superior ramus of pubis, unspecified laterality, initial encounter S32.519A Encounter type: initial encounter Laterality: unspecified laterality Pelvic bone location: pubis Sublocation of pubis: superior rim Fall on same level from slipping, tripping or stumbling, initial encounter W01.0XXA Encounter type: initial encounter Leukocytosis D72.829 Aortic stenosis I35.0 Osteoporosis M81.0 Rheumatoid arthritis M06.9 Severe anemia D64.9 UTI (urinary tract infection) N39.0 (1) Closed pelvic fracture Encounter type: initial encounter Laterality: unspecified laterality Pelvic bone location: pubis Sublocation of pubis: superior rim Qualified Code(s): S32.519A - Fracture of superior rim of unspecified pubis, initial encounter for closed fracture (2) Fall from slip, trip, or stumble Encounter type: initial encounter Qualified Code(s): W01.0XXA - Fall on same level from slipping, tripping and stumbling without subsequent striking against object, initial encounter
[2023-10-11] MEDS: ONDANSETRON 4 MG OD TAB PO PRN (15:39)
[2023-10-11] MEDS: ENOXAPARIN INJ 30 MG/0.3 ML SYR SQ SCH (15:40)
[2023-10-12] MEDS: cephALEXin 250 MG CAP PO SCH ×3 (00:02→22:07)
[2023-10-12] MEDS: DOCUSATE SODIUM 100 MG CAP PO SCH ×3 (00:02→22:08)
[2023-10-12] MEDS: HYDROXYCHLOROQUINE SULFATE 200 MG TAB PO SCH ×2 (00:02→22:07)
[2023-10-12] MEDS: ACETAMINOPHEN 500 MG TAB PO PRN ×2 (00:04→09:06)
[2023-10-12 07:12] LABS: Basophils # (auto) 0.02 K/uL (0.00-0.20); Basophils % (auto) 0.4 %; Eosinophils # (auto) 0.15 K/uL (0.00-0.50); Eosinophils % (auto) 2.7 %; Hematocrit (blood only) 29.9 % (37.0-47.0); Hemoglobin 9.4 g/dl (12.0-16.0); Immature Granulocytes # (auto) 0.26 K/uL (0.01-0.20); Immature Granulocytes % (auto) 4.6 %; Lymphocytes # (auto) 0.98 K/uL (1.20-3.40); Lymphocytes % (auto) 17.3 %; Mean Corpuscular Hemoglobin 28.1 pg (25.0-34.0); Mean Corpuscular Hgb Conc 31.4 g/dL (32.0-36.0); Mean Corpuscular Volume 89.5 fL (80.0-100.0); Monocytes # (auto) 0.79 K/uL (0.11-0.59); Neutrophils # (auto) 3.46 K/uL (1.40-6.50); Platelet Count 282 K/uL (130-400); RDW Coefficient of Variation 15.1 % (11.5-14.5); RDW Standard Deviation 49.6 fL (36.4-46.3); Red Blood Count 3.34 M/uL (4.20-5.40); White Blood Count 5.66 K/ul (4.8-10.8)
[2023-10-12] MEDS: LIDOCAINE 5% 1 PATCH TD SCH (09:07)
[2023-10-12 09:40] LABS: BUN Creatinine Ratio 23.3 (10-20); Calcium 9.2 mg/dl (8.6-10.3); Creatinine Clr Calc Pharmacy 30.8 ml/min; Est GFR (African American) 69.9 ml/min; Est GFR (Non-African American) 60.3 ml/min; Potassium 4.1 mmol/L (3.5-5.1)
--- NOTE | 2023-10-12 13:32 | Hospitalist Progress Note ---
Date of Service October 12, 2023 Assessment & Plan (1) Closed pelvic fracture: Plan: 88 F presenting to ED for right hip pain following a mechanical fall. Now stable, admitted to hospital for acute fractures of pelvis Age-related osteoporotic fracture of the pelvis -Hip CT: "Fracture of right superior pubic ramus, parasymphyseal region. Acute on chronic appearing fracture of the right inferior pubic ramus. Nondisplaced fracture of the left superior pubic ramus. No femoral neck or intertrochanteric hip fracture." -Fall appears to be mechanical, without LOC, dizziness, headache, or other visu al abnormalities. Does have severe but description of fall not consistent with syncope -continue pain control: continue Tylenol 1000 mg every 8 hours prn;continue tramadol prn, lidocaine patch-pain controlled -Fall precautions -Orthopedic surgery consult placed, conservative management -awaiting rehab placement (2) Fall from slip, trip, or stumble: Plan: as above, mechanical (3) Leukocytosis: Plan: WBC count chad up to 15 and found to have a UTI on UA although some epis contaminated WBC count down to 12 without treatment and then back to normal after starting antibiotics Patient has no complaints and is afebrile Lungs sound clear, is moving bowels, ambulating with assistance and OOB to chair so doubt from atelectasis or PNA UA abnormal-->Ur cx mixed ryan--> finish out 5 days of keflex through 10/12 -if spikes fever, would check blood cultures, CXR, and assess for viral infection (4) Aortic stenosis: Plan: severe on last ECHO here with fall but no syncope or presyncope, no chest pain-doubt fall related to follows with Dr. Johnston and she is to see [facility] for eval for TAVR no need to repeat ECHO now but is to have one in Nov (5) Osteoporosis: Plan: on bisphosphonates, follows with Rheum due to pill burden causing nausea, will dc Vit D and Calcium + Vit D as well as MVI (6) Rheumatoid arthritis: Plan: seroneg polyarthritis, follows with Rheum continue Plaquenil (7) Severe anemia: Plan: Acute blood loss anemia secondary to fracture hgb stable/improved at 9.4 follow CBC as outpt (8) UTI (urinary tract infection): Plan: as above continue keflex through 10/12 Plan DVT proph-Lovenox SQ Constipation-resolved, continue docusate, Miralax prn Dispo-awaiting rehab placement-insurance auth denied for [facility], now awaiting rehab bed at [facility] Discussed care with her daughter on phone and at bedside on 10/10. Gave option to go home with 24/7 care but pt and family prefer she stay and go to SNF- awaiting [facility] bed Admission and Anticipated Discharge Date Admission Date: October 05, 2023 Subjective Pt had some pain in the right pelvis this AM but now improved with pain meds. No other concerns Physical Exam Constitutional: WD/WN, vitals as above Respiratory: normal respiratory effort, lungs clear to auscultation Cardiovascular: Rate/Rhythm: regular rate and regular rhythm Heart Sounds: + murmur (3/6 ALICIA at RUSB) Extremities: no edema Chest (Breasts): Chest: + abnormal inspection of chest (pectus carinatum) Gastrointestinal (Abdomen): normal bowel sounds, soft, nontender, no hepatosplenomegaly Psychiatric: A+Ox3, euthymic affect Results & Data Results & Data Vital Signs (Past 12 Hours) Vital Signs Temp Pulse Resp BP Pulse Ox O2 Del Method 10/12/23 12:41 37.1 C 10/12/23 11:54 78 20 127/85 99 Room Air 10/12/23 08:08 36.8 C 80 20 125/70 96 Room Air Laboratory Results CBC, BMP reviewed PG Care Time/CCT Total # of Minutes Spent Total Time Spent with Patient: Total time spent is greater than 50% in coordination of care (as documented) at patient's floor/unit and/or counseling patient: Coding Level of Care Code 72709 SUB INP/OBS CARE 25MIN Diagnoses Closed fracture of superior ramus of pubis, unspecified laterality, initial e ncounter S32.519A Encounter type: initial encounter Laterality: unspecified laterality Pelvic bone location: pubis Sublocation of pubis: superior rim Fall on same level from slipping, tripping or stumbling, initial encounter W01.0XXA Encounter type: initial encounter Leukocytosis D72.829 Aortic stenosis I35.0 Osteoporosis M81.0 Rheumatoid arthritis M06.9 Severe anemia D64.9 UTI (urinary tract infection) N39.0 (1) Closed pelvic fracture Encounter type: initial encounter Laterality: unspecified laterality Pelvic bone location: pubis Sublocation of pubis: superior rim Qualified Code(s): S32.519A - Fracture of superior rim of unspecified pubis, initial encounter for closed fracture (2) Fall from slip, trip, or stumble Encounter type: initial encounter Qualified Code(s): W01.0XXA - Fall on same level from slipping, tripping and stumbling without subsequent striking against object, initial encounter
[2023-10-12] MEDS: ENOXAPARIN INJ 30 MG/0.3 ML SYR SQ SCH (15:27)
[2023-10-13] MEDS: DOCUSATE SODIUM 100 MG CAP PO SCH (07:53)
[2023-10-13] MEDS: LIDOCAINE 5% 1 PATCH TD SCH (07:53)
[2023-10-13] MEDS: ACETAMINOPHEN 500 MG TAB PO PRN (12:38)
--- NOTE | 2023-10-13 12:46 | Discharge Summary ---
Discharge Summary Date of Service October 13, 2023 Notes For Next Care Provider Monitor for worsening signs/symptoms of COVID-19 Medication Changes From Visit Tylenol 1000 mg po tid Tramadol 50mg po q6h prn moderate-severe pain Docusate 100mg po bid Admission HPI Per Admitting Provider Min is an 88-year-old woman who presented to the emergency room with her son and [id number] for assessment of her right hip pain, which she suffered after a fall. Patient reports she lost her balance at home at about 3 PM when standing up for a drink of water. She denies hitting her head or losing consciousness. Fall was unwitnessed but her son came to pick her off the floor when she called for help. They decided to come to the hospital when she was shon ble to ambulate because of the pain in her right leg. On arrival, she denies recent illness, headaches, vision changes, shortness of breath, abdominal pain, nausea, urinary frequency. According to her family, she appears at her baseline from a mental status standpoint. She is not on blood thinners. Vitals on arrival were within stable and/or normal limits. CBC and CMP were both mostly normal. Troponin was slightly elevated at 19.1, though a 2-hour repeat level was 17. CT head was negative for any acute intracranial process. CT C-spine was negative for fracture or subluxation. However, CTs of the hip and pelvis both showed an "acute fracture of the right superior pubic ramus, parasymphyseal region" and a "nondisplaced fracture of the left superior pubic ramus." There was also an "mpgke-np-ivbmwcf appearing fracture of the right inferior pubic ramus" noted on imaging as well. She received a single oral dose of acetaminophen 500 mg. Hospitalist service was then consulted for admission. Principal Dx & Hospital Course #1 = Principal Diagnosis (1) Closed pelvic fracture: 88 F presenting to ED for right hip pain following a mechanical fall. Now stable, admitted to hospital for acute fractures of pelvis Age-related osteoporotic fracture of the pelvis -Hip CT: "Fracture of right superior pubic ramus, parasymphyseal region. Acute on chronic appearing fracture of the right inferior pubic ramus. Nondisplaced fracture of the left superior pubic ramus. No femoral neck or intertrochanteric hip fracture." -Fall appears to be mechanical, without LOC, dizziness, headache, or other visual abnormalities. Does have severe but description of fall not consistent with syncope -continue pain control: continue Tylenol 1000 mg every 8 hours and make scheduled again as pain has retunred with making prn (as she doesn't ask for pain meds);continue tramadol prn, lidocaine patch-pain controlled -Fall precautions -Orthopedic surgery consult placed, conservative management -rehab placement (2) Fall from slip, trip, or stumble: as above, mechanical (3) Leukocytosis: WBC count chad up to 15 and found to have a UTI on UA although some epis contaminated WBC count down to 12 without treatment and then back to normal after starting antibiotics Patient has no complaints and is afebrile Lungs sound clear, is moving bowels, ambulating with assistance and OOB to chair so doubt from atelectasis or PNA UA abnormal-->Ur cx mixed ryan--> finish out 5 days of keflex through 10/12 Now tested positive for COVID-19 on day of discharge-completely asymptomatic but question if brief leukocytosis was from COVID? Either way, she is doing well and no treatment indicated. No antiviral as unknown when she first got COVID (4) Aortic stenosis: severe on last ECHO here with fall but no syncope or presyncope, no chest pain-doubt fall related to follows with Dr. Johnston and she is to see [facility] for eval for TAVR no need to repeat ECHO now but is to have one in Nov (5) Osteoporosis: on bisphosphonates, follows with Rheum due to pill burden causing nausea, held Vit D and Calcium + Vit D as well as MVI but can fabricio e if desired as outpt (6) Rheumatoid arthritis: seroneg polyarthritis, follows with Rheum continue Plaquenil (7) Severe anemia: Acute blood loss anemia secondary to fracture hgb stable/improved at 9.4 follow CBC as outpt (8) UTI (urinary tract infection): as above finished 5 day course of keflex on 10/12 (9) COVID-19: asymptomatic no treatment indicated Plan DVT proph-Lovenox SQ Constipation-resolved, continue docusate bid Dispo-rehab placement today at [facility] Discussed care with her daughter on phone again on day of discharge including discussion of COVID dx Discharge Exam Constitutional WD/WN, vitals as above Respiratory normal respiratory effort, lungs clear to auscultation Cardiovascular Rate/Rhythm: regular rate and regular rhythm Heart Sounds: + murmur (3/6 ALICIA at RUSB) Extremities: no edema Chest (Breasts) Chest: + abnormal inspection of chest (pectus carinatum) Gastrointestinal (Abdomen) normal bowel sounds, soft, nontender, no hepatosplenomegaly Psychiatric A+Ox3, euthymic affect Updated Medication List Medication Instructions Recorded Confirmed Type calcium carbonate 600 mg-vitamin 1 tab PO BID 08/03/18 10/05/23 History D3 20 mcg (800 unit) chewable tablet (Caltrate 600 plus D) hydroxychloroquine 200 mg tablet 200 mg PO HS 08/03/18 10/05/23 History (Plaquenil) [id number] 80 mcg-lutein 1 tab PO DAILY 10/05/23 10/05/23 History 166.7 mcg-herbal 66.7 mg chew tablet (Alive Premium Women's 50 Plus) acetaminophen 500 mg tablet 1,000 mg (2 x 500 mg) PO Q8H #60 10/13/23 Rx tabs docusate sodium 100 mg capsule 100 mg PO BID #60 caps 10/13/23 Rx lidocaine 5 % topical patch 1 patch transdermal QAM #15 ea 10/13/23 Rx tramadol 50 mg tablet 50 mg PO Q6H PRN Moderate-severe 10/13/23 Rx pain #10 tabs Hospital Stay Data Consultations 10/05/23 01:37 ED Decision to Admit Stat 10/05/23 02:30 Consult Orthopedic Surgery Routine Diagnostic Imagining Performed 10/04/23 23:04 CT head/brain wo con Stat CT hip RT wo con Stat CT neck [CT cervical spine wo con] Stat CT pelvis wo con Stat Pending Results Patient Have Any Pending Studies at Discharge: No Discharge Instructions Given to Patient (Per Discharging Provider) You were admitted with a fall and fractures of the pelvis. Please continue pain control and you will need rehabilitation for strengthening. You were found incidentally to have COVID-19 on the day of discharge but fortunately you are not having any symptoms and do not need any treatment for this. Monitor for any fevers, shortness of breath, or any other concerning symptoms. Total Time Total Time Spent Total Time Spent (In Minutes): 35 min Coding Level of Care Code 44814 INP/OBS DISCH >30 MIN Diagnoses Closed fracture of superior ramus of pubis, unspecified laterality, initial encounter S32.519A Encounter type: initial encounter Laterality: unspecified laterality Pelvic bone location: pubis Sublocation of pubis: superior rim Fall on same level from slipping, tripping or stumbling, initial encounter W01.0XXA Encounter type: initial encounter Leukocytosis D72.829 Aortic stenosis I35.0 Osteoporosis M81.0 Rheumatoid arthritis M06.9 Severe anemia D64.9 UTI (urinary tract infection) N39.0 COVID-19 U07.1
== END 2023-10-13 13:17 | DRG 542 ==
LOC: ED 20:18 → SUATTDRO 10-05 02:14 → EDINP 10-05 02:14 → 3W 10-05 20:14